=== PATIENT | male | born 1930 | race Caucasian/White ===

== ENCOUNTER 2016-12-23 19:27 | Inpatient (IN) | payer MEDICARE ==
[~2016-12-23] VITALS: Ht 177.8 cm; Wt 69.7 kg
[2016-12-23] VITALS (10 sets, daily range): BP systolic 76–113; BP diastolic 45–69; PULSE 75–82; RESP 12–18; O2SAT 94–100
[~2016-12-23 19:27] MED LIST: ACET-171 PO; ATRO5DRO SL; BISA10EN RC; CARV25TA2 PO; DOCU-41 PO; FUR20 PO; GUAI-656 PO; HALO2ORA PO; HYDR2TAB28 PO; LAC10 PO; LISI-567 PO; LORA0.5T PO; MAGN400T23 PO; NITR0.4T SL; OMEP20CA11 PO; POLY17PO2 PO; TERA2CAP4 PO; WARF3TAB PO; [UNRECOGNIZED DRUG - CODE] BOTH_EYES; [UNRECOGNIZED DRUG - CODE] PO
--- NOTE | 2016-12-23 20:04 | ED.REPORT ---
HPI-General Illness Date of Service Dec 23, 2016 ED Provider: Josh Warner MD Patient is an 86 year old male with a hx of CHF, CAD, HTN, mitral valve replacement, and previously low H&H with transfusions on Coumadin who presents to the ED via EMS from [facility] for a low H&H value and fatigue. Fatigue has been getting progressively worse over the past several weeks, moderate in severity. He has noticed some darker stools over approximately the same time period. No other notable allev/exac factors. He denies hematochezia, chest pain, abdominal pain, recent falls, lightheadedness, or any other symptoms at this time. Nursing Notes Stated Complaint: ANEMIA Chief Complaint: General Complaint Nursing Notes Reviewed: Yes Allergies: Coded Allergies: Bumble Bee (Verified Allergy, Severe, Anaphylaxis, 12/23/16) hydrocodone (Unverified Adverse Reaction, Severe, Hallucinations, 12/23/16) Scheduled ([Fentanyl patch]) 25 MCG TOPICAL Every 72 hours Carvedilol (Carvedilol) 25 Mg Tablet 25 MG PO BID Fluocinolone 0.01% Cream (Fluocinolone 0.01% Cream) 60 Applic/15 Gm Cream 1 APPLIC TOPICAL DAILY Lisinopril (Lisinopril) 5 Mg Tablet 5 MG PO DAILY Omeprazole (Omeprazole) 20 Mg Capsule.dr 20 MG PO DAILY Potassium Chloride ER (Potassium Chloride ER) 20 Meq Tablet.er 20 MEQ PO DAILYWM TAKE WITH FOOD Sennosides (Senna) 8.6 Mg Tablet 17.2 MG PO DAILYWD Terazosin (Terazosin) 2 Mg Capsule 4 MG PO HS Torsemide (Torsemide) 20 Mg Tablet 60 MG PO DAILY Warfarin Sodium (Warfarin Sodium) 2 Mg Tablet 2 MG PO Q2DAY Warfarin Sodium (Warfarin Sodium) 3 Mg Tablet 3 MG PO Q2DAY Scheduled PRN Acetaminophen (Acetaminophen) 500 Mg Tablet 1,000 MG PO Q6H PRN PRN For Pain Bisacodyl (Bisacodyl Rectal) 10 Mg/30 Ml Enema 10 MG RC PRN PRN PRN For Constipation Guaifenesin (Tussin Chest Congestion) 100 Mg/5 Ml Liquid 100 MG PO Q4H PRN PRN For Cough Hypromellose (Nature's Tears) 15 Ml Drops 15 ML BOTH_EYES Q 4 hrs PRN PRN dry eye Melatonin (Melatonin) 1 Mg Tablet 2 MG PO HS PRN PRN Insomnia Nitroglycerin SL (Nitrostat) 0.4 Mg Tab.subl 0.4 MG SL Q5MIN PRN PRN chest pain General Time Seen by MD: 20:03 Transferred From: shelter Chief Complaint Other (Low H&H ) Hx Obtained From: Patient, Other family... Arrived By: Ambulance Sudden in Onset?: Yes Onset Occurred: More than a week ago... (3 weeks) Symptom Duration: Since onset Severity: Current: No pain currently Severity: Maximum: No pain Associated with: Reports: Shortness of breath Relieved by: Remaining still Context Related History: Reports Coronary artery disease Similar Sx Previous: Yes Past Medical History Past Medical History 1. Coronary artery disease, valvular heart disease with a mechanical mitral valve, on chronic Coumadin. 2. Dyslipidemia. 3. Hypertension. 4. Chronic systolic CHF with an EF 30% to 35% on echo January of 2013. No significant recent change per echo report. Please see Dr. Martines's dictation for details. 5. DJD. 6. Chronic stasis changes in lower extremities with chronic swelling. 7. BPH. 8. 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 Marie and observed. 9. Gastroesophageal reflux disease. Past Surgical History He has had a mechanical mitral valve and coronary bypass grafting in 2003, pacemaker in 2003, upgrade to AICD in 2007. Cataract surgery in 2009. Reports: Appendectomy Reports: Pacemaker insertion Family History Mother at 86 of CVA. Father in his late 50s in World War II as part of the [employer]. Smoking History Former Smoker Social History He lives at [facility] with his . He is a former smoker, quitting in the 1970s after less than 30 pack history. Alcohol Use: Denies alcohol use Drug Use: Denies drug use Other Social History: Good social support, , Local resident Occupation Retired Ambulatory Status Independent Review of Systems +low H&H -recent fall Full Review of Systems Constitutional: Reports: Fatigue Respiratory: Reports: Shortness of breath Cardiovascular: Denies: Chest pain GI: Reports: Melena, Denies: Abdominal pain, Hematochezia Neurologic: Denies: Lightheaded Complete sys rev & neg: except as marked. Physical Exam Nursing note and vitals reviewed. Constitutional: Well-developed, elderly gentleman. Not diaphoretic. Head: Normocephalic and atraumatic. Mouth/Throat: Oropharynx is clear and moist. No oropharyngeal exudate. Eyes: EOM are normal. Pupils are equal, round, and reactive to light. Neck: Supple, no tracheal deviation. Cardiovascular: Normal rate, paced rhythm. Chronic julien stasis changes in bilateral lower extremities. Pulmonary/Chest: Effort normal and breath sounds normal. No respiratory distress. Abdominal: Soft. No distension. There is no rebound or guarding. Bowel sounds present. Mild epigastric tenderness. Musculoskeletal: Range of motion grossly intact, moving all extremities. 2+ pitting edema to bilateral lower extremities. : No gross blood. Guaiac positive Neurological: AOx3. Grossly nonfocal exam. Skin: Warm and dry, no rashes or pallor appreciated. Psychiatric: Appropriate mood and affect. Behavior appears normal. Vital Signs Vital Signs Date Time Temp Pulse Resp B/P Pulse Ox O2 Delivery O2 Flow Rate FiO2 12/23/16 21:09 76 14 101/50 96 Room Air 12/23/16 20:39 76 13 91/49 96 Room Air 12/23/16 20:07 98/45 12/23/16 20:00 76 12 80/58 96 Room Air 12/23/16 19:45 75 17 76/61 94 Room Air 12/23/16 19:35 36.7 81 13 98/45 95 Room Air Interpretation & Diagnostics Lab Results Interpretation Result Diagram: 12/24/16 0751 12/24/16 0751 Test 12/23/16 00:00 12/23/16 19:50 Urine Color Yellow (YELLOW) Urine Appearance Cloudy (CLEAR,HAZY) Urine pH 5.5 (5.0-8.0) Urine Specific [place] 1.010 (1.003-1.035) Urine Protein Tracemg/dL (NEG,TRACE) Urine Glucose (UA) Negativemg/dL (NEGATIVE) Urine Ketones Negativemg/dL (NEGATIVE) Urine Occult Blood Negative (NEGATIVE) Urine Nitrite Negative (NEGATIVE) Urine Bilirubin Negative (NEGATIVE) Urine Urobilinogen Normalmg/dL (NORMAL) Urine Leukocyte Esterase Large (NEGATIVE) Urine RBC 0-2/hpf (0-2) Urine WBC >50/hpf (0-5) Urine Epithelial Cells Few/hpf (NONE-MOD) Urine Crystals None seen (NONE SEEN) Urine Bacteria Many/hpf (NONE-FEW) Urine Hyaline Casts 11/22/lpf (NONE) Urine Granular Casts None seen (NONE SEEN) Urine Waxy Casts None seen (NONE SEEN) Urine Red Blood Cell Casts None seen (NONE SEEN) Urine White Blood Cell Casts None seen (NONE SEEN) Urine Mucus None seen (None Seen) Urine Trichomonas None seen (NONE SEEN) Urine Yeast None (NONE SEEN) Urinalysis Comment None Urine Culture Reflexed Indicated White Blood Count 3.5th/mm3 (3.8-10.1) Red Blood Count 1.85mil/mm3 (4.40-5.80) Mean Corpuscular Volume 85.9fL (81-100) Mean Corpuscular Hemoglobin 24.3pg (27.0-35.0) Mean Corpuscular Hemoglobin Concent 28.3% (32.0-37.0) Red Cell Distribution Width 14.4% (12.3-15.4) Platelet Count 163bil/L (150-400) Neutrophils (%) (Auto) 67.3% (40-74) Lymphocytes (%) (Auto) 18.9% (14-46) Monocytes (%) (Auto) 9.6% (4-12) Eosinophils (%) (Auto) 3.4% (0-5) Basophils (%) (Auto) 0.8% (0-3) Magnesium Level 2.6mg/dL (1.6-2.6) Total Bilirubin 0.3mg/dL (0.0-1.2) Aspartate Amino Transf (AST/SGOT) 14U/L (0-50) Alanine Aminotransferase (ALT/SGPT) 7U/L (0-44) Alkaline Phosphatase 67U/L (25-160) Total Protein 6.3g/dL (6.4-8.4) Albumin 3.6g/dL (3.4-5.0) ECG Interpretation ECG Interpretation: Ventricular-paced rhythm rate 75 Time: 19:35 Interpreted by: ED physician X-Ray Chest Interpretation Chest Xray Interpretation: IMPRESSION: 1. Focal opacity in the right lung base consistent with atelectasis versus pneumonia. 2. Cephalization of pulmonary vasculature suspicious for CHF Dictated by: Stephanie Hall MD, PhD on 12/23/2016 at 20:56 Approved by: Stephanie Hall MD, PhD on 12/23/2016 at 20:57 View: Portable, 1 view Interpretation / Wet Read by: Interpret - Radiologist Re-Eval/Medical Decision Med Decision/Clinical Course 86M w/ complex PMHx including CAD, mitral valve replacement on coumadin p/w progressive fatigue over the past several weeks. Low H/H noted earlier today, Hgb less than 5 here. Elevated INR on coumadin. Hemoccult positive. Given critically low Hgb on coumadin with suspected GI bleed, patient transfused FFP to reverse INR and pRBCs. Currently with tenuous but stable vital signs here in the department. Discussed with GI chip bin conveyor tender for emergent scope. Will admit for further eval and management. Discussed at length with family and patient. Time of Eval: 21:01 Re-Evaluation/Progress Note: Discussed plan for admission with transfusion. Discussed tranfusion risks. Patient understands and agrees with plan. All questions addressed at this time. Consultation #1: Referral / Consult Name: Dany Mccallum MD Call Returned at: 21:36 Pin Worker: Will see patient, Agrees with eval, Agrees with plan Note: Discussed pt's case with GI. Will see pt tomorrow. Consultation #2: Referral / Consult Name: Tad Finnegan MD Consulted With: Hospitalist Call Returned at: 21:40 Pin Worker: Will see patient, Agrees with eval, Agrees with plan, Accepts admit Note: Discussed pt's case. Accepts admit. Counseled Regarding: Diagnosis, Lab results, Need for admission Discharge & Departure Primary Impression: GI bleed GI bleed type/associated pathology: unspecified gastrointestinal hemorrhage type Qualified Code: K92.2 - Gastrointestinal hemorrhage, unspecified Additional Impression: Anemia Anemia type: unspecified type Qualified Code: D64.9 - Anemia, unspecified Disposition: ADMITTED TO HOSPITAL Discharge Condition All VS Reviewed: Yes Condition: Stable Referrals: Jamaica Flores MD (PCP) Crit Care Except Billable Proc Time Spent: 75-104 minutes Services Performed: Patient management by me, Time spent at bedside, Reviewing test results, Discussing patient care, Documentation in record Critical Care Notes: Please see MDM Scribe Attestation Portions of this note were transcribed by Bassam Leos. I, Dr. Warner personally performed the history, physical exam and medical decision-making; I reviewed and confirmed the accuracy of the information in the transcribed note. Signed by: Bassam Leos 12/23/16, [id number] copies to: Jamaica Flores MD, William B MD Dec 23, 2016 20:04 BASSAM LEOS Dec 23, 2016 20:54
[2016-12-23] MEDS ORDERED: 0.9% Sodium Chloride 1,000 ML IV ONE (20:05)
[2016-12-23 20:15] LABS: BASOPHILS % (AUTO) 0.8 % (0-3); EOSINOPHILS % (AUTO) 3.4 % (0-5); MONOCYTES % (AUTO) 9.6 % (4-12); Mean Corpuscular Hemoglobin 24.3 pg (27.0-35.0); Mean Corpuscular Volume 85.9 fL (81-100); NEUTROPHILS % (AUTO) 67.3 % (40-74); Platelet Count 163 bil/L (150-400)
[2016-12-23 20:35] LABS: INR 4.92 ratio
[2016-12-23 20:43] LABS: Magnesium 2.6 mg/dL (1.6-2.6)
[2016-12-23 20:51] LABS: TROPONIN T 0.063 ug/L (0.0-0.011)
--- NOTE | 2016-12-23 20:59 | DRSVH ---
PROCEDURE: X-RAY CHEST ONE VIEW, PORTABLE ([id number]) INDICATIONS: anemia, fatigue TECHNIQUE: One view of the chest was acquired. COMPARISON: [facility], CR, XR CHEST 1VW (PORTABLE), 07/14/2015, 11:28. FINDINGS: Surgical changes and devices: AICD is stable. Lungs and pleura: No pleural effusions or pneumothorax. Focal opacity noted in the right lung base c ompatible with atelectasis versus pneumonia. There is cephalization of pulmonary vasculature suspici ous for CHF. Mediastinum: Mediastinal contours appear normal. Heart size is enlarged. Bones and chest wall: No suspicious bony lesions. Overlying soft tissues appear unremarkable. IMPRESSION: 1. Focal opacity in the right lung base consistent with atelectasis versus pneumonia. 2. Cephalization of pulmonary vasculature suspicious for CHF Dictated by: Stephanie Hall MD, PhD on 12/23/2016 at 20:56 Approved by: Stephanie Hall MD, PhD on 12/23/2016 at 20:57
[2016-12-23] MEDS ORDERED: Phytonadione (Adult) 10 mg/50 mL NS IV ONE ×2 (21:15)
[2016-12-23] MEDS ORDERED: Ondansetron 2 mg/mL 2 mL Inj IVPUSH PRN (21:55)
[2016-12-23] MEDS ORDERED: Polyethylene Glycol (PEG) 17 Gm Powder PO PRN (21:55)
[2016-12-23] MEDS ORDERED: Alum-Mag Hydrox-Simeth 30 mL Suspension PO PRN (21:55)
[2016-12-23] MEDS ORDERED: Pantoprazole Inj 80 MG in 0.9% Sodium Chloride 80 ML IV ONE (22:00)
[2016-12-23] MEDS: Pantoprazole Inj 80 MG in 0.9% Sodium Chloride 80 ML IV SCH (23:35)
[2016-12-24] VITALS (28 sets, daily range): BP systolic 94–131; BP diastolic 47–74; PULSE 72–83; RESP 14–20; O2SAT 90–99
[2016-12-24 00:14] LABS: APPEARANCE,URINE CLOUDY (CLEAR,HAZY); COLOR,URINE YELLOW (YELLOW); PH,URINE 5.5 (5.0-8.0)
[2016-12-24 00:15] LABS: OCCULT BLOOD,URINE NEGATIVE (NEGATIVE); UROBILINOGEN,URINE NORMAL (NORMAL)
--- NOTE | 2016-12-24 00:31 | PCM.HPMED ---
Subjective Date of Service Dec 24, 2016 Primary Provider: Admitting Physician: Tad Finnegan MD Primary Care Physician: Jamaica Flores MD Attending Physician: Tad Finnegan MD Admit Status: From the Emergency Department Chief Complaint: Fatigue with mild shortness of breath History of Present Illness: Patient is an 86-year-old male with past medical history remarkable for coronary artery disease post CABG as well as mitral valve replacement with mechanical valve chronically on Coumadin who presents with several weeks of worsening fatigue. The patient states that he has never had any pain anywhere during the course of this weeks long process. The patient states that it has been gradual over the last several weeks with accompanying mild shortness of breath which is noted with exertion and not when lying flat. The patient is wheelchair bound at baseline. The patient is also noted approximately 1 month of dark colored stools but denies any abdominal pain or gross distention of his abdomen.. The patient denies fever or chills sore throat and runny nose or cough chest pain, nausea vomiting diarrhea, unusual bruising or bleeding, or trouble with urination. Review of Systems: A comprehensive review of systems was obtained and all are negative except for what is included in the history of present illness. Allergies Coded Allergies: Bumble Bee (Verified Allergy, Severe, Anaphylaxis, 12/23/16) hydrocodone (Unverified Adverse Reaction, Severe, Hallucinations, 12/23/16) Home Medications Carvedilol 25 MG PO BID Docusate Sodium 200 MG PO QAM Furosemide 60 MG PO QAM Lisinopril 20 MG PO DAILY Magnesium Oxide 400 MG PO BID Omeprazole 20 MG PO DAILY Terazosin 4 MG PO HS Warfarin Sodium 3 MG PO DAILY@17 Acetaminophen 1,000 MG PO Q6H PRN For Pain Atropine Sulfate 2 DROP SL Q2H PRN secretions Bisacodyl 10 MG RC PRN For Constipation Guaifenesin 100 MG PO Q4H PRN For Cough Haloperidol Lactate 0.5-2 MG PO Q2H PRN For Agitation Hydromorphone 2-4 MG PO HS PRN For Pain Hydromorphone Liquid 1-4 MG PO Q1H PRN pain/dyspnea Hypromellose 15 ML BOTH_EYES Q 4 hrs PRN dry eye Lactulose 10-80 GM PO DAILY PRN For Constipation Lorazepam 0.5-2 MG PO Q2H PRN anxiety/dyspnea Nitroglycerin SL 0.4 MG SL Q5MIN PRN chest pain Polyethylene Glycol 3350 17 GM PO DAILY PRN For Constipation PMH 1. Coronary artery disease, 2. mitral valvular heart disease with a mechanical mitral valve, on chronic Coumadin. 3. Hypertension. 4. Chronic systolic CHF with an EF 30% to 35% on echo January of 2013 5. Degenerative joint disease 6. Chronic stasis changes in lower extremities with chronic swelling. 7. Benign prostatic hypertrophy 8. 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 Marie and observed. 9. Gastroesophageal reflux disease. 10. Dyslipidemia. Surgical History mechanical mitral valve replacement coronary bypass grafting in 2003, pacemaker in 2003, upgrade to AICD in 2007. Cataract surgery in 2009. Appendectomy Family History Mother at 86 of CVA. Father in his late 50s in World War [place] as part of the [place] [employer] on the [place] Brother in his 60s Social History Occupation: retired Hx Alcohol Use: No (minimal. none since open heart surgery in 2003.) Hx Substance Use: No Hx Tobacco Use: No Smoking Status: Former Smoker Living Ar[facility]ement[facility] Exam Vital Signs Vital Sign - Last Date Time Temp Pulse Resp B/P Pulse Ox O2 Delivery O2 Flow Rate FiO2 12/24/16 00:10 36.6 76 16 101/62 12/23/16 23:14 Supplement Oxygen 12/23/16 22:30 100 4.00 Intake and Output 12/23/16 12/23/16 12/24/16 Cumulative From/Thru 15:00 23:00 07:00 12/23/16 19:35 - 12/24/16 00:00 Intake Total 1000 ml 260 ml 1260 ml Balance 1000 ml 260 ml 1260 ml Intake IV Total 1000 ml 90 ml 1090 ml FFP 170 ml 170 ml Exam General: Elderly mustachioed gentleman appearing approximately stated age, Alert, Oriented X3, Cooperative, No acute Distress Eyes: PERRLA, extraocular motion intact, Scleral Anicteric, pale moist conjunctiva HENT: Normocephalic atraumatic, dry mucous membranes without central cyanosis or cobblestoning mucosa, Neck: Supple, no Thyromegaly, trachea central. No JVD noted Cardiovascular: Regular rate and rhythm, diastolic murmur noted at the apex with mechanical click, no rubs or gallops noted Chest & Lungs: Clear to auscultation bilaterally without wheezing rales or rhonchi Abdomen: Soft, Non-tender, Non-distended, Normoactive bowel tones. Extremities: Moderate 2-3+ pitting edema in lower extremities bilaterally up to the knee, pulses intact bilaterally at radial and dorsalis pedis no clubbing or cyanosis noted Musculoskeletal: Unremarkable : No Nguyen in place Skin: Chronic venous stasis changes including dark discoloration circumferentially around the distal lower extremities Neurological: Grossly Neurologically Intact, has generalized weakness, Normal Speech, Sensation Intact Psych: Normal mood and affect Lab and Diagnostics Result Diagram: 12/23/16194912/23/161949 X-Rays, CTs and MRIs X-RAY CHEST ONE VIEW, PORTABLE ([id number]) IMPRESSION: 1. Focal opacity in the right lung base consistent with atelectasis versus pneumonia. 2. Cephalization of pulmonary vasculature suspicious for CHF Dictated by: Stephanie Hall MD, PhD on 12/23/2016 at 20:56 Approved by: Stephanie Hall MD, PhD on 12/23/2016 at 20:57 Cardiac Echo Impressions Previously performed Echocardiogram Report in April 2015 Interpretation Summary The left ventricle is normal in size. The ejection fraction is estimated to be 15-20%. Compared to the prior exam, left ventricular function is significantly decreased. The right ventricle is moderate to severely dilated. Right ventricular systolic function is moderate to severely reduced. Both atria are severely dilated. Both atria have remained unchanged in size since the prior echo exam. There are two AICD wires present in the right ventricle. In Apical view, a ill visualized, small mobile structure seen, appears to be attached to the AICD lead at the tricuspid valve level. Differential diagnosis includes: Thrombus versus small vegetation or residual chordae. Consider RAMONA. There is a mechanical mitral valve. The prosthetic mitral valve is well-seated. Cannot assess the presence or severity of regurgitation due to shielding from the prosthesis. The mitral E velocity is about 1.84 meter/sec. In 01/13/2013 it was 1.88 meter/sec. An annuloplasty ring is noted in the tricuspid position. There is mild to moderate tricuspid regurgitation.Compared to the prior echo exam, there has been an increase in TR severity. The right ventricular systolic pressure is estimated at 65 mmHg assuming a right atrial pressure of 15 mm Hg. Compared to the prior echo exam, there has been an increase in the severity of pulmonary hypertension. There are moderately large-sized bilateral pleural effusions noted. Reading Physician:ELADIO Assessment & Plan Patient is an 86-year-old male with past medical history remarkable for coronary artery disease post CABG as well as mitral valve replacement with mechanical valve chronically on Coumadin who presents with several weeks of worsening fatigue. # Acute blood loss anemia - Patient presents with hemoglobin 4.5 at admission - Patient is on chronic warfarin therapy for a mechanical mitral valve replacement and came in with an INR of 4.92 - Patient typed and crossed in the emergency department and started on fresh frozen plasma prior to initiation of typed and crossed 2 units of PRBC on PCC - Repeat H&H to be ordered after completion of 2 units of PRBC and at least one unit of FFP - Order to hold at least 1 more unit of blood # Acute upper GI bleed - Patient denies hematemesis or hematochezia but has noted at least one month of dark stools - Patient denies abdominal pain or increased abdominal girth at this time making large intra-abdominal hemorrhage less likely - Gastroenterology reportedly consulted from the emergency department with a upper endoscopy scope possible - Patient made nothing by mouth for possible endoscopy procedure by GI - Medicine appreciates GIs recommendations - Blood product replacement described above - Pantoprazole bolus and drip ordered # Supratherapeutic INR - Patient is on chronic warfarin therapy for a mechanical mitral valve replacement and came in with an INR of 4.92 - Patient given IV vitamin K started in the emergency department - Repeat INR ordered and pending # Elevated troponins - Patient has known coronary artery disease, combined with the severe blood loss anemia expected likely due to demand ischemia - Troponins at presentation of 0.063 this will be trended every 6 hours with the last draw ordered and pending # Chronic systolic congestive heart failure - Last echo reportedly shows ejection fraction of 15-20% in April 2015 - Patient was severely anemic and will require 2 units of PRBC at minimum, and has 4 units of FFP ordered by ED - Patient will be monitored for volume overload however this will be difficult to assess given patient's depleted intravascular volume and requirement for blood products - Holding carvedilol and lisinopril and torsemide given low normotensive state with severe volume depletion - Consider monitoring with serial chest x-rays and close physical exam # Acute kidney injury - Creatinine of 2.4 at admission with baseline creatinine typically around 1 according to electronic medical records - Likely secondary to severe volume depletion from acute blood loss anemia due to upper GI bleed - Volume repletion described above mostly conservative with fluid management given CHF - monitor with serial BMPs # mitral valvular heart disease with a mechanical mitral valve on chronic Coumadin - Patient started on IV vitamin K given elevated INR with likely upper GI bleed and acute blood loss anemia - Monitor INR and to avoid significant prolonged decreased INR given risk of thromboembolic phenomenon to systemic circulation # Chronic Coronary artery disease - We will monitor elevated troponin serially every 6 - Current med rec fails to reveal patient's current statin therapy - Recommend a lipid panel after blood product transfusion - Tight blood pressure control # Chronic Hypertension. 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 Marie - Platelet count of 163 admission - Anemia is likely due to acute blood loss - Monitor # Gastroesophageal reflux disease. - Pantoprazole bolus and drip ordered for upper GI bleed DVT prophylaxis: Patient is chronically anticoagulated on warfarin and is currently contraindicated further anticoagulation given upper GI bleed GI prophylaxis: Pantoprazole drip CODE STATUS: Full code The patient is admitted to inpatient status with expected length of stay greater than to midnights given presenting symptoms, likely diagnosis, possible complications and required treatment. Pain Evaluation: Adequate Pain Control GI Prophylaxis: Proton Pump Inhibitor VTE Prophylaxis Indicated: Contraindicated VTE Prophylaxis: Theraputic Anticoag with Warfarin Resuscitation Status: CPR: Attempt Resuscitation Attending Statement The patient was seen and examined together with Dr. Godfrey on 12/23 and I agree with the history, exam and plan as outlined in the note above. Jesse Barrera DO Dec 24, 2016 00:31 Tad Finnegan MD Dec 24, 2016 05:39
[2016-12-24] MEDS ORDERED: 0.9% Sodium Chloride 250 ML ONE ×2 (00:36→03:31)
[2016-12-24] MEDS ORDERED: SENN-133 PO (02:31)
[2016-12-24] MEDS ORDERED: FLUO15CR33 TOPICAL (02:31)
[2016-12-24] MEDS ORDERED: LISI-571 PO (02:31)
[2016-12-24] MEDS ORDERED: WARF3TAB7 PO (02:31)
[2016-12-24] MEDS ORDERED: POTA-62 PO (02:31)
[2016-12-24] MEDS ORDERED: WARF2TAB7 PO (02:31)
[2016-12-24] MEDS ORDERED: MELA1TAB9 PO (02:31)
[2016-12-24] MEDS ORDERED: TORS20TA3 PO (02:31)
[2016-12-24] MEDS ORDERED: FENTANYL TOPICAL (02:31)
--- NOTE | 2016-12-24 02:32 | NUR ---
Admit Documentation Values in admission documentation recalled from prior visits r/t pt forgetfulness and poor historian. Pt reports his medical records are on file and available from [facility], including advance directive. Contacted facility tc, only able to obtain MAR. Will request additional paperwork in AM. Addendum: 12/24/16 at 0235 by JUVENTINO STEWARD RN Amended: Links added.
--- NOTE | 2016-12-24 06:46 | NUR ---
Admit Pt arrived to PCC room 2028 via bed from ED with all belongings at approx. 2200; report received from Madhuri Cisneros. Pt denies pain or discomfort on arrival, family at bedside. Admit documentation completed with past records from prior visits, updated medical history documentation still needed from [facility]; med rec completed via MAR from [facility]. VSS upon arrival, tele V-paced 70s. STAT 2 units of FFP, protonix bolus and drip, and vitamin K infusion initiated upon arrival to floor; 2 units PRBCs given throughout shift without adverse reaction. Pt slightly wheezy after initiation of second PRBC unit, though wheezes resolved spontaneously upon reassessment. UA sent to lab.
--- NOTE | 2016-12-24 07:54 | PCM.PNMED ---
Subjective Date of Service Dec 24, 2016 Subjective Patient feels weak. He is not short of breath and has been progressively short of breath for 2 weeks. He denies any chest pain. He has had chronic edema which is about stable. He denies any abdominal pain, nausea or hematemesis. 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 He is said to have a mechanical mitral valve and is on Coumadin which was partially reversed. Exam Vital Signs Vital Sign - Last Date Time Temp Pulse Resp B/P Pulse Ox O2 Delivery O2 Flow Rate FiO2 12/24/16 07:16 36.7 76 18 105/64 12/24/16 04:30 93 Nasal Cannula 3.50 Intake and Output 12/23/16 12/23/16 12/24/16 Cumulative From/Thru 15:00 23:00 07:00 12/23/16 19:35 - 12/24/16 06:50 Intake Total 1000 ml 1100 ml 2100 ml Output Total 350 ml 350 ml Balance 1000 ml 750 ml 1750 ml Intake Oral 0 ml 0 ml IV Total 1000 ml 430 ml 1430 ml Packed Cells 300 ml 300 ml FFP 370 ml 370 ml Output Urine Total 350 ml 350 ml Exam Alert and oriented -3, no distress. Fluent speech Anicteric sclera. Lungs are clear with normal rate and effort, decreased breath sounds in the bases and slight tachypnea. Heart is regular without murmur gallop or rub Abdomen soft nontender, flat Extremities normal for chronic venous stasis changes as well as 2-3+ edema bilaterally. Skin is free of rash or lesions. Venous stasis changes. IVs and Medications Medications Reviewed: Medications were reviewed in detail Lab and Diagnostics Result Diagram: 12/23/16194912/23/161949 X-Rays, CTs and MRIs X-RAY CHEST ONE VIEW, PORTABLE ([id number]) IMPRESSION: 1. Focal opacity in the right lung base consistent with atelectasis versus pneumonia. 2. Cephalization of pulmonary vasculature suspicious for CHF Dictated by: Stephanie Hall MD, PhD on 12/23/2016 at 20:56 Approved by: Stephanie Hall MD, PhD on 12/23/2016 at 20:57 Cardiac Echo Impressions Previously performed Echocardiogram Report in April 2015 Interpretation Summary The left ventricle is normal in size. The ejection fraction is estimated to be 15-20%. Compared to the prior exam, left ventricular function is significantly decreased. The right ventricle is moderate to severely dilated. Right ventricular systolic function is moderate to severely reduced. Both atria are severely dilated. Both atria have remained unchanged in size since the prior echo exam. There are two AICD wires present in the right ventricle. In Apical view, a ill visualized, small mobile structure seen, appears to be attached to the AICD lead at the tricuspid valve level. Differential diagnosis includes: Thrombus versus small vegetation or residual chordae. Consider RAMONA. There is a mechanical mitral valve. The prosthetic mitral valve is well-seated. Cannot assess the presence or severity of regurgitation due to shielding from the prosthesis. The mitral E velocity is about 1.84 meter/sec. In 01/13/2013 it was 1.88 meter/sec. An annuloplasty ring is noted in the tricuspid position. There is mild to moderate tricuspid regurgitation.Compared to the prior echo exam, there has been an increase in TR severity. The right ventricular systolic pressure is estimated at 65 mmHg assuming a right atrial pressure of 15 mm Hg. Compared to the prior echo exam, there has been an increase in the severity of pulmonary hypertension. There are moderately large-sized bilateral pleural effusions noted. Reading Physician:PM Assessment & Plan Patient is an 86-year-old male with past medical history remarkable for coronary artery disease post CABG as well as mitral valve replacement with mechanical valve chronically on Coumadin who presents with several weeks of worsening fatigue. # Acute blood loss anemia, POA and active - Patient presents with hemoglobin 4.5 at admission - Patient is on chronic warfarin therapy for a mechanical mitral valve replacement and came in with an INR of 4.92 - Patient typed and crossed in the emergency department and started on fresh frozen plasma prior to initiation of typed and crossed 2 units of PRBC on PCC - Repeat H&H to be ordered after completion of 2 units of PRBC and at least one unit of FFP - Order to hold at least 1 more unit of blood Will repeat H&H at this point. We will anticipate threshold hematocrit of 27 given his history of CAD. He will require concomitant diuresis with his active systolic heart failure. # Acute upper GI bleed, POA and active - Patient denies hematemesis or hematochezia but has noted at least one month of dark stools - Patient denies abdominal pain or increased abdominal girth at this time making large intra-abdominal hemorrhage less likely - Gastroenterology reportedly consulted from the emergency department with a upper endoscopy scope possible - Patient made nothing by mouth for possible endoscopy procedure by GI - Medicine appreciates GIs recommendations - Blood product replacement described above - Pantoprazole bolus and drip ordered Spoke with gastroenterology, anticipated endoscopy today and then prepped for colonoscopy tonight for tomorrow. # Supratherapeutic INR, POA and affect - Patient is on chronic warfarin therapy for a mechanical mitral valve replacement and came in with an INR of 4.92 - Patient given IV vitamin K started in the emergency department - Repeat INR ordered and pending # Elevated troponins - Patient has known coronary artery disease, combined with the severe blood loss anemia expected likely due to demand ischemia - Troponins at presentation of 0.063 this will be trended every 6 hours with the last draw ordered and pending # Acute on Chronic systolic congestive heart failure, POA and active - Last echo reportedly shows ejection fraction of 15-20% in April 2015 - Patient was severely anemic and will require 2 units of PRBC at minimum, and has 4 units of FFP ordered by ED - Patient will be monitored for volume overload however this will be difficult to assess given patient's depleted intravascular volume and requirement for blood products - Holding carvedilol and lisinopril and torsemide given low normotensive state with severe volume depletion - Consider monitoring with serial chest x-rays and close physical exam The patient will need diuresis today before and during transfusion. # Acute kidney injury, POA and active. 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 - We will monitor elevated troponin serially every 6 - Current med rec fails to reveal patient's current statin therapy - Recommend a lipid panel after blood product transfusion - Tight blood pressure control The patient will best be managed with optimization of hemoglobin and hematocrit. # Chronic Hypertension. POA and Active. 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 Marie - Platelet count of 163 admission - Anemia is likely due to acute blood loss - Monitor # Gastroesophageal reflux disease. - Pantoprazole bolus and drip ordered for upper GI bleed DVT prophylaxis: Patient is chronically anticoagulated on warfarin and is currently contraindicated further anticoagulation given upper GI bleed GI prophylaxis: Pantoprazole drip CODE STATUS: Full code The patient is admitted to inpatient status with expected length of stay greater than to midnights given presenting symptoms, likely diagnosis, possible complications and required treatment. Add: Non bleeding ulcer on EGD. Mechanical Mitral valve at risk for thrombosis. D/W GI. Will heparinize tonight and watch for recurrent bleeding. GI Prophylaxis: Proton Pump Inhibitor VTE Prophylaxis: Theraputic Anticoag with Warfarin Resuscitation Status: CPR: Attempt Resuscitation Jesus Gibbs MD Dec 24, 2016 07:54
[2016-12-24] MEDS ORDERED: Furosemide 10 mg/mL 4 mL Inj IVPUSH ONE ×2 (07:55→19:20)
[2016-12-24 08:28] LABS: INR 1.76 ratio
[2016-12-24 08:58] LABS: TROPONIN T 0.054 ug/L (0.0-0.011)
[2016-12-24] MEDS ORDERED: Propofol 10 mg/mL 20 mL Inj ONE (10:08)
[2016-12-24] MEDS: 0.9% Sodium Chloride 250 ML IV SCH ×2 (10:37→22:24)
--- NOTE | 2016-12-24 11:37 | DRSVH ---
PROCEDURE: X-RAY CHEST ONE VIEW, PORTABLE ([id number]) INDICATIONS: chf requiring fluid recussitaion TECHNIQUE: One view of the chest was acquired. COMPARISON: [facility], CR, XR CHEST 1VW (PORTABLE), 12/23/2016, 20:11. FINDINGS: Surgical changes and devices: Stable positioning of left chest AICD. Patient status post median ster notomy and valvular replacement. Lungs and pleura: Mild venous congestion and persist and opacification involving the right lung base. No pneumothorax. Mediastinum: Mediastinal contours appear normal. Heart size is normal. Bones and chest wall: No suspicious bony lesions. Overlying soft tissues appear unremarkable. IMPRESSION: Mild edema and/or pneumonia involving the right lung base similar to prior exam. Dictated by: Akil MARKS Interpreted: Keven Hernandez MD on 12/24/2016 at 9:11 Approved by: Keven Hernandez M.D. on 12/24/2016 at 11:34
--- NOTE | 2016-12-24 11:52 | NUR ---
Social work note - Initial Assessment Jya Alejo is a 86 yr old who was admitted for GI bleed. EMR reviewed: Pt has [facility] plan of [place]. Pt's PCP is Dr Flores. Pt has LTC insurance, no VA benefits. Readmit score is 4 - high. See attached CM initial assessment. [employer] met with pt - introduced D/C planning and explained SW role. Pt is alert and oriented. He lives at [facility] with his . He is wheelchair bound at baseline. uses a walker at times. He has assistance for dressing, bathing, medications and showers. 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 Pt admits that he is nervous that he is sick. He plans to return to [facility] at d/c. He has good support from his family - Daughter Starla Monahan is DPOA. Pt states that family will help transport home. [employer] spoke with Michelle at [facility] - They would love for him to return. He will need to be able to transfer to wheel chair, but they provide consistent stand by assistance. [employer] will continue to follow. Assessment: Pt who will be able to return to [facility] if pt is able to transfer from bed to wheelchair. Pt has had [facility] past - graduated several months ago. Plan: Home to [facility] with family providing transportation. ALEXANDER Goel Addendum: 12/24/16 at 1158 by ANNA PARKINSON SS Amended: Links added.
--- NOTE | 2016-12-24 13:22 | CONS ---
[address] [address] CONSULTATION REPORT PATIENT: LEIDY THAKKAR : 1930 MR#: [id number] ADMIT: 12/23/2016 JOB ID: [id number] DATE OF SERVICE: 12/24/2016 REASON FOR CONSULTATION: I was asked to see the patient at [facility] for anemia. HISTORY OF PRESENT ILLNESS: This is an 86-year-old gentleman with significant past medical history of CAD, mitral valve disease with mechanical mitral valve on chronic Coumadin. Also has hypertension with CHF with EF of only 30% to 35% with degenerative joint disease, reflux, and chronic anemia with thrombocytopenia due to monoclonal gammopathy. He has been followed by oncology. He came to the emergency department because he was feeling weak and fatigued for several weeks. He does not have any issues with change in bowel patterns, blood in the stools, or black stools, but his bowel pattern has not changed. He is going to the bathroom once or twice a day. Because of progressive gradual worsening reflux, which was later accompanied by shortness of breath with exertion, he came to the emergency department. In the emergency department, he was noted to be severely anemic. His INR was actually elevated to 4.9 and hemoglobin was 4.5. Overnight he was given a reversal agent to hopefully getting into a more therapeutic range. When I saw him this morning at 7:00, he did not appear to have any blood transfusion, but he told me his dizziness has resolved. He does not have any nausea or vomiting. He has no abdominal pain, chest pain, or shortness of breath; however, he was in the bed and he has not been exerting himself. He denied seeing any black stools and he says he always has brown formed stools. PAST MEDICAL HISTORY: As above. PAST SURGICAL HISTORY: Mechanical valve replacement, CABG, pacemaker, cataract surgery, appendectomy. FAMILY HISTORY: CVA. SOCIAL HISTORY: Retired. No alcohol, tobacco, or drug use. MEDICATIONS: Here include pantoprazole, MiraLAX, senna, Zofran, and Maalox. PHYSICAL EXAMINATION: The patient is alert, oriented, does appear comfortable. Temp 36.6, pulse 75, respiration 20, blood pressure 121/66. Head and neck: No icterus, no lymphadenopathy. Lungs: Clear. Cardiovascular: Regular rate and rhythm. Normal S1, S2. Abdomen: Soft, nontender, nondistended, with normoactive bowel sounds. Extremities: No pitting edema of the ankles. Skin: Shows no obvious jaundice. LABORATORY DATA: His hemoglobin was 4.5 on admission. As of 8:00 this morning 6.5 hemoglobin. Platelets are 163,000. INR went from 4.9 to 1.76. Chemistry: BUN 67, creatinine 2.19. Mild elevation of troponin of 0.054. IMPRESSION and PLAN: This is a gentleman with severe anemia, probably with some demand supply mismatch which may have been elevating his troponin, but on the other hand this could be due to his kidney issues as well. There is no evidence of active bleeding. Agree with PPI. I would like to do an upper endoscopy but I would like to get him transfused with a hemoglobin of 9 before proceeding due to his significant cardiac history. Continue resuscitation and if there is no clear source will proceed with a colonoscopy. Would like to do this with anesthesia. DELROY
[2016-12-24] MEDS: Pantoprazole Inj 80 MG in 0.9% Sodium Chloride 80 ML IV SCH (13:48)
[2016-12-24] MEDS ORDERED: Lactated Ringer's 1,000 ML IV SCH (15:36)
[2016-12-24] MEDS ORDERED: Ondansetron 2 mg/mL 2 mL Inj IVPUSH PRN (15:40)
[2016-12-24] MEDS ORDERED: MetoCLOpramide 5 mg/mL 2 mL Inj IVPUSH PRN (15:40)
--- NOTE | 2016-12-24 16:22 | PCM.HPANE ---
Patient Data Date of Service: Dec 24, 2016 Surgeon Admitting Provider:Tad Finnegan MD Attending Provider:Tad Finnegan MD Primary Care Physician:Jamaica Flores MD Other Provider: Reason for Visit Acute Anemia, Gi Bleed Ht/WT & BMI Height (Feet): 5 Height (Inches): 10.00 Weight (Kilograms): 73.100 Body Mass Index 23.07 Allergies Coded Allergies: Bumble Bee (Verified Allergy, Severe, Anaphylaxis, 12/23/16) hydrocodone (Unverified Adverse Reaction, Severe, Hallucinations, 12/23/16) Past Anesthesia History Anesthesia History: Denies:: Abnormal Airway, Anesthesia Reactions, Difficult Intubation, Fam Anesthesia Reaction, Fam Malignant Hypertherm, Malignant Hyperthermia Diabetes History Hx Diabetes?: No MRSA MRSA: No Medications Blood Thinner: Coumadin Home Meds Incl Beta Jorge: Yes Previous Beta Jorge Dose >24: Dose Not Given, Contraindicated Beta Jorge Contraindicated: Systolic BP <110 mmHg, Symptoms of CHF Present Reported Medications Melatonin 1 Mg Tablet2 Mg PO HS PRN Insomnia 12/24/16 Warfarin Sodium 3 Mg Tablet3 Mg PO Q2DAY 30 Days Ref 0 12/24/16 Warfarin Sodium 2 Mg Tablet2 Mg PO Q2DAY 30 Days Ref 0 12/24/16 Torsemide 20 Mg Cpmlry00 Mg PO DAILY 30 Days Ref 0 12/24/16 Sennosides (Senna)8.6 Mg Lclqbn90.2 Mg PO DAILYWD 12/24/16 Potassium Chloride ER 20 Meq Tablet.er20 Meq PO DAILYWM Ref 0 TAKE WITH FOOD 12/24/16 Lisinopril 5 Mg Tablet5 Mg PO DAILY #30 TABLET Ref 0 12/24/16 Fluocinolone 0.01% Cream 60 Applic/15 Gm Cream1 Applic TOPICAL DAILY psoriasis Ref 0 12/24/16 [Fentanyl patch] No Conflict Check25 Mcg TOPICAL Every 72 hours 12/24/16 Guaifenesin (Tussin Chest Congestion)100 Mg/5 Ml Viqycy449 Mg PO Q4H PRN For Cough 07/14/15 Acetaminophen 500 Mg Tablet1,000 Mg PO Q6H PRN For Pain 07/14/15 Bisacodyl (Bisacodyl Rectal)10 Mg/30 Ml Enema10 Mg RC PRN PRN For Constipation 07/14/15 Nitroglycerin SL (Nitrostat)0.4 Mg Tab.subl0.4 Mg SL Q5MIN PRN chest pain #1 BOTTLE 04/17/15 Hypromellose (Nature's Tears)15 Ml Drops15 Ml BOTH_EYES Q 4 hrs PRN dry eye 04/17/15 Terazosin 2 Mg Capsule4 Mg PO HS Ref 0 04/17/15 Omeprazole 20 Mg Capsule.dr20 Mg PO DAILY Ref 0 04/17/15 Carvedilol 25 Mg Jogrnl54 Mg PO BID 30 Days Ref 0 12/13/14 Discontinued Reported Medications Polyethylene Glycol 3350 17 Gm Powd.pack17 Gm PO DAILY PRN For Constipation 07/14/15 Lorazepam 0.5 Mg Tablet0.5-2 Mg PO Q2H PRN anxiety/dyspnea Ref 0 07/14/15 Lactulose 10 Gm/15 Ml Zeogcdso12-94 Gm PO DAILY PRN For Constipation 07/14/15 Hydromorphone Liquid (Dilaudid Liquid)1 Mg/Ml Oral.soln1-4 Mg PO Q1H PRN pain/ dyspnea 07/14/15 Haloperidol Lactate 2 Mg/1 Ml Oral.conc0.5-2 Mg PO Q2H PRN For Agitation 07/14/15 Atropine Sulfate (Isopto Atropine)5 Ml Drops2 Drop SL Q2H PRN secretions 07/14/15 Lisinopril 20 Mg Iupsha03 Mg PO DAILY #30 07/14/15 Docusate Sodium (Colace)100 Mg Emyzbyi617 Mg PO QAM For Constipation Ref 0 04/18/15 Hydromorphone 2 Mg Tablet2-4 Mg PO HS PRN For Pain Ref 0 04/17/15 Furosemide 20 Mg Tab60 Mg PO QAM 30 Days Ref 0 04/17/15 Discontinued Scripts Magnesium Oxide (Mag-Oxide)400 Mg Cqkcyb414 Mg PO BID 30 Days Prov:Ashlee Curiel MD 07/23/15 Warfarin Sodium (Coumadin)3 Mg Tablet3 Mg PO DAILY@17 30 Days Prov:Ashlee Curiel MD 07/23/15 History History of ENT Problems?: Yes HEENT History: Positive for:: Cataracts (s/p cataract surgery) Denies:: Abnormal Airway Difficult Intubation Dysphagia Hearing Problem Denture Type: None Teeth Condition: Within Normal Limits Hx of Heart Problems?: Yes Cardiovascular History: Positive for:: Cardiac Surgery (valve replacement and bypass surgery) Congestive Heart Failure Edema Heart Murmur (HX. AORTIC AND MITRAL VALVE INSUFFICIENCY-replaced 2003) Hypertension Pacemaker Denies:: AICD Atrial Fibrillation Chest Pain Irregular Heartbeat Thrombophlebitis Valvular Heart Disease Hx of Respiratory Problem?: Yes Respiratory History: Positive for:: Dyspnea (related to poor cardiac output.) Denies:: Asthma COPD Chest Surgery Cough Emphysema Hemoptysis Pneumonia Tuberculosis Hx Neurologic Problems?: Yes Neurological History: Positive for:: Dizziness Denies:: Alzheimer's Disease CVA Dementia Headaches Parkinson's Disease Seizures Hx of GI Problems?: Yes Hx of Problems?: No Male Hx: Denies:: Prostate Problems Scrotal Mass Testicular Surgery Hx Musculoskeletal Problems?: Yes Musculoskeletal History: Positive for:: Musculoskeletal Trauma (fall with hip fractures x3 ) Denies:: Back Injury Joint Replacement Hx of Psycho/Social Problems?: No Psycho Social History: Denies:: Anxiety Bipolar Disorder Hx Depression Suicide Attempt Hx Surgeries?: Yes (bypass surgery, mitral valve replacement, appy, pacemaker,) Hx Any Other Health Problems?: Yes Other History: Positive for:: Hospitalization (heart surgery 2003 mitral valve replaced) Denies:: Cancer Endocrine Disease Thyroid Disease History Blood Transfusions: Positive for:: Accept Blood Products? Blood Transfusions Denies:: Blood Transfuse Reaction Hx Diabetes: No Occupation: retired Hx Alcohol Use: No (minimal. none since open heart surgery in 2003.)Hx Substance Use: No Smoking Status: Former Smoker Have You Smoked inLast 12 mo: No Stop/Bang Treated for Sleep Apnea?: No Do You Have a CPAP Machine?: No S-Snoring: Do You Snore Loudly: No T-Tired: feel tired, fatigued: No O-Obsered: Observed not breath: No P-Blood Pressure: treated: Yes B- Body Mass Index > 35 kg/m2: No A- Age over 50: Yes N- Neck Large Circumference: No G- Gender Male: Yes MARTHA Total Score: 3 Risk Assessment Category Category 1A: Patient has history of documented sleep apnea, and HAS NOT received any narcotic, sedative or anesthesia administration during this stay. Category 1B: Patient has history of documented sleep apnea, and HAS received any narcotic , sedative or anesthesia administration during this stay Category 2: Patient has SUSPECTED Obstructive Sleep Apnea, and HAS received any narcotic , sedative or anesthesia administration during this stay. Category 3: Patient has SUSPECTED Obstructive Sleep Apnea and HAS NOT received narcotic, sedative or anesthesia administration during this stay. Category 4: Outpatient in Procedural Areas with known sleep apnea or who screen positive for High Risk via the STOP/BANG questionnaire. Exam Exam Vital Signs Vital Signs Date Time Temp Pulse Resp B/P Pulse Ox O2 Delivery O2 Flow Rate FiO2 12/24/16 14:43 36.8 76 18 116/54 12/24/16 13:56 36.8 76 16 121/65 12/24/16 11:25 36.8 75 20 121/66 12/24/16 11:22 36.4 76 18 111/69 94 Room Air 12/24/16 11:10 36.4 79 20 111/69 12/24/16 10:24 77 General Appearance: Alert, Oriented X3, Cooperative, No Acute Distress HEENT/AIRWAY: MP 2 Lungs: Normal Air Movement Heart: Exam Unremarkable Meds/Labs/Diagnostics Admission Meds Current Medications Sodium Chloride 1,000 ml @ 0 mls/hr Q0M ONCE IV Last administered on 20:13; Start 12/23/16 at 20:05; Stop 12/23/16 at 20:07; Status DC Phytonadione 10 mg/Sodium Chloride 51 ml @ 102 mls/hr ONCE ONCE IV Last administered on 12/23/16 23:31; Start 12/23/16 at 21:15; Stop 12/23/16 at 21:44 ; Status DC Pantoprazole 80 mg/Sodium Chloride 100 ml @ 400 mls/hr ONCE ONCE IV Last administered on 12/23/16 23:35; Start 12/23/16 at 22:00; Stop 12/23/16 at 22:14 ; Status DC Pantoprazole 80 mg/Sodium Chloride 100 ml @ 10 mls/hr Q10H IV Last administered on 12/24/16 13:48; Start 12/23/16 at 22:00 Sodium Chloride 250 ml @ ud STK-MED ONCE .ROUTE Last administered on 12/24/16 01:12; Start 12/24/16 at 00:36; Stop 12/24/16 at 00:41; Status DC Sodium Chloride (Normal Saline) 250 ml @ ud STK-MED ONCE .ROUTE Last administered on 12/24/16 03:41; Start 12/24/16 at 03:31; Stop 12/24/16 at 03:35 ; Status DC Furosemide 40 mg 40 mg ONCE ONCE IVPUSH Last administered on 12/24/16t 10:31; Start 12/24/16 at 07:55; Stop 12/24/16 at 07:58; Status DC Sodium Chloride (Normal Saline) 250 ml @ 10 mls/hr Q24H IV Last administered on 12/24/16t 10:37; Start 12/24/16 at 10:15 Labs Test 12/23/16 00:00 12/23/16 19:50 12/24/16 07:51 Urine Color Yellow (YELLOW) Urine Appearance Cloudy (CLEAR,HAZY) Urine pH 5.5 (5.0-8.0) Urine Specific [place] 1.010 (1.003-1.035) Urine Protein Tracemg/dL (NEG,TRACE) Urine Glucose (UA) Negativemg/dL (NEGATIVE) Urine Ketones Negativemg/dL (NEGATIVE) Urine Occult Blood Negative (NEGATIVE) Urine Nitrite Negative (NEGATIVE) Urine Bilirubin Negative (NEGATIVE) Urine Urobilinogen Normalmg/dL (NORMAL) Urine Leukocyte Esterase Large (NEGATIVE) Urine RBC 0-2/hpf (0-2) Urine WBC >50/hpf (0-5) Urine Epithelial Cells Few/hpf (NONE-MOD) Urine Crystals None seen (NONE SEEN) Urine Bacteria Many/hpf (NONE-FEW) Urine Hyaline Casts 5/20/lpf (NONE) Urine Granular Casts None seen (NONE SEEN) Urine Waxy Casts None seen (NONE SEEN) Urine Red Blood Cell Casts None seen (NONE SEEN) Urine White Blood Cell Casts None seen (NONE SEEN) Urine Mucus None seen (None Seen) Urine Trichomonas None seen (NONE SEEN) Urine Yeast None (NONE SEEN) Urinalysis Comment None Urine Culture Reflexed Indicated White Blood Count 3.5th/mm3 (3.8-10.1) Red Blood Count 1.85mil/mm3 (4.40-5.80) Mean Corpuscular Volume 85.9fL (81-100) Mean Corpuscular Hemoglobin 24.3pg (27.0-35.0) Mean Corpuscular Hemoglobin Concent 28.3% (32.0-37.0) Red Cell Distribution Width 14.4% (12.3-15.4) Platelet Count 163bil/L (150-400) Neutrophils (%) (Auto) 67.3% (40-74) Lymphocytes (%) (Auto) 18.9% (14-46) Monocytes (%) (Auto) 9.6% (4-12) Eosinophils (%) (Auto) 3.4% (0-5) Basophils (%) (Auto) 0.8% (0-3) Magnesium Level 2.6mg/dL (1.6-2.6) Total Bilirubin 0.3mg/dL (0.0-1.2) Aspartate Amino Transf (AST/SGOT) 14U/L (0-50) Alanine Aminotransferase (ALT/SGPT) 7U/L (0-44) Alkaline Phosphatase 67U/L (25-160) Total Protein 6.3g/dL (6.4-8.4) Albumin 3.6g/dL (3.4-5.0) Hemoglobin 6.5g/dL (13.8-17.2) Hematocrit 22.1% (41.0-50.0) Prothrombin Time 19.0sec (8.1-12.5) Prothromb Time International Ratio 1.76ratio Sodium Level 141mEq/L (134-144) Potassium Level 5.1mEq/L (3.5-5.2) Chloride Level 105mEq/L (97-108) Carbon Dioxide Level 21mmol/L (18-29) Blood Urea Nitrogen 67mg/dL (8-27) Creatinine 2.19mg/dL (0.76-1.27) Estimat Glomerular Filtration Rate 30mL/min (>59) Glucose Level 100mg/dL (60-99) Calcium Level 8.7mg/dL (8.5-10.1) Troponin T 0.054ug/L (0.0-0.011) Plan Impression Patient chart reviewed, patient interviewed and anesthestic plan with risks, benefits, and alternatives discussed, and informed consent obtained. ASA Physical Status: ASA3 Severe Disease (chf, cad) Anesthetic Plan: MAC Bene/Risks/Altern/Consents: Yes HP Complete Prior to Induction: Yes Garett Andino MD Dec 24, 2016 16:22
[2016-12-24] MEDS: Lactated Ringer's 1,000 ML IV ONE ×2 (16:40→16:51)
--- NOTE | 2016-12-24 16:56 | PCM.ENDEGD ---
EGD Date of Service: Dec 24, 2016 Physician Tad Finnegan MD Pre Procedure Diagnosis: Anemia Post Procedure Dx & Findings: Peptic ulcer esophageal narrowing esophageal ulcer galina esophagitis Procedure Esophagogastroduodenoscopy PROCEDURE IN DETAIL: After proper sedation, Olympus video endoscope was inserted into patient's mouth and esophagus was successfully intubated. Scope introduced esophagus. Esophagus showed normal shiny whitish mucosa consistent with squamous cell component. Also starting the midesophagus, there was whitish material superficially covering the mucosa. Suspect galina. Brushing for cytology done. Z line was at 35 cm from the incisors. Z line was obscured by benign- appearing peptic stricture with half millimeter ulcer. Biopsy was not done because INR was 1.7. Scope further advanced to the stomach. Stomach showed flattened rugae folds atrophic mucosa consistent with atrophic gastritis. Patient also had 3 superficial ulcers 5 mm to 8 mm in size. These were all clean-based.. Cardia fundus body antrum pylorus were all visualized. Retroflexion was done. Stomach was easily inflated and deflatable using air. Scope further events to the distal duodenum. Duodenum revealed normal villous structures with normal appearing folds without any mass ulcer erosion. Impression Peptic superficial ulcer clean base esophageal benign peptic narrowing with esophageal ulcer . The lumen was at least 15 mm in size. Scope went back and forth easily. galina esophagitis Biopsies obtained because of the INR 1.7. Recommendation Resume anticoagulation to get the INR to low therapeutic level to protect the valve. Aggressive acid suppression Obtain H. pylori antibody test. If positive treat for Helicobacter pylori. Awaiting to confirm Galina esophagus. It fits positive for Galina esophagitis then treat with fluconazole. Since we have potential source of slow bleeding, would hold off on doing colonoscopy. Presedation Assessment Risks and Benefits Informed consent was obtained from the patient after all risks and benefits including but not limited to drug reaction, infection, pain, bleeding, perforation, as well as alternatives were discussed. Patient monitoring Continuous pulse oximetry, cardiac monitoring, blood pressure monitoring, IV access, and oxygen at 2L per nasal cannula. Complications There were no periprocedural complications identified. Post Procedure Plan Post Procedure Recommendations 1. Restrict activities today. 2. Resume normal activities in the morning. 3. Resume medications. 4. GERD behavioral modification: - Avoid fatty, acidic, spicy, large meals - Do not lie down after meals - Do not eat or drink anything for at least 2 1/2 hours before going to bed at night - Discontinue tobacco and alcohol - Decrease or avoid caffeine - Avoid chocolate and mints - Decrease weight - Avoid aspirin and non steroidal anti-inflammatory agents (NSAID) such as Aleve, Advil, Mobic, Naproxen, Ibuprofen, etc 5. Add proton pump inhibitor. Take 30 minutes before 1st meal of the day. 6. Patient informed of normal post procedure side effects as bloating, drowsiness, blood streaking in the stool 7. If gastric biopsy reveal H.pylori, continue with appropriate treatment 8. If small bowel biopsy reveals celiac, continue with appropriate treatment 9. Please don't hesitate to call me with any questions Dany Mccallum MD Dec 24, 2016 16:56
--- NOTE | 2016-12-24 17:00 | PCM.ANEP1 ---
Post Anesthesia PACU Phase 1 Assessment Date of Service: Dec 24, 2016 Vital Signs 92% 84 36.5 20 98/56 Vital Signs Date Time Temp Pulse Resp B/P Pulse Ox O2 Delivery O2 Flow Rate FiO2 12/24/16 16:13 36.7 76 16 131/67 91 Room Air 12/24/16 14:43 36.8 76 18 116/54 12/24/16 13:56 36.8 76 16 121/65 12/24/16 11:25 36.8 75 20 121/66 12/24/16 11:22 36.4 76 18 111/69 94 Room Air 12/24/16 11:10 36.4 79 20 111/69 12/24/16 10:24 77 Anesthetic Administered: MAC Level of Alertness: Awake, talking ORR's with Equal Strength: Yes Pain: No Nausea or Vomiting: No CV Function & Hydration Stable: Yes Airway Device: Oxygen Delivery: Nasal Cannula Lungs: Normal Air Movement Dermatome Level: Full Sensation PACU Phase 2 Assessment Complications: No Follow up Care: N/A Patient Instructions Provided: N/A Garett Andino MD Dec 24, 2016 17:00
--- NOTE | 2016-12-24 17:49 | NUR ---
Blood Products/Endoscopy/Polst Pt transfused 1 unit FFP and 1 unit PRBC. Pt tolerated transfusions with no s/s of reaction. Pt back from endoscopy, per report no active bleeds found, pt advanced to full liquid diet this evening and nurse to advance diet as tolerated. Pt and his daughter requested a new POLST. Form was filled out and given to MD to sign. Form is currently in front of pt's chart. Pt requests DNR/DNI with limited interventions.
[2016-12-24 18:46] LABS: INR 1.34 ratio
[2016-12-24] MEDS ORDERED: Heparin 5,000 Unit/mL Inj IVPUSH ONE (19:15)
[2016-12-24] MEDS ORDERED: Heparin 5,000 Unit/mL Inj IVPUSH PRN (19:15)
--- NOTE | 2016-12-24 20:05 | PCM.CONPHA ---
Subjective Date of Service: Dec 24, 2016 Fatigue with mild shortness of breath Reason for Pharmacy Consult: Anticoagulation Management Objective Vital Signs Date Time Temp Pulse Resp B/P Pulse Ox O2 Delivery O2 Flow Rate FiO2 12/24/16 19:28 36.6 78 16 111/61 97 Nasal Cannula 2.00 12/24/16 19:00 36.8 76 16 106/56 12/24/16 19:00 36.8 76 16 106/56 90 Room Air 12/24/16 17:06 76 16 106/64 94 Room Air 12/24/16 17:00 Nasal Cannula 12/24/16 16:56 76 16 98/56 96 Nasal Cannula 2 12/24/16 16:13 36.7 76 16 131/67 91 Room Air 12/24/16 14:43 36.8 76 18 116/54 12/24/16 13:56 36.8 76 16 121/65 12/24/16 11:25 36.8 75 20 121/66 12/24/16 11:22 36.4 76 18 111/69 94 Room Air 12/24/16 11:10 36.4 79 20 111/69 12/24/16 10:24 77 12/24/16 07:52 Supplement Oxygen 12/24/16 07:52 36.6 76 18 105/64 92 Room Air 12/24/16 07:20 36.6 78 16 111/61 12/24/16 07:16 36.7 76 18 105/64 12/24/16 04:30 36.6 76 18 109/66 93 Nasal Cannula 3.50 12/24/16 04:13 36.6 76 18 94/57 12/24/16 03:59 36.6 76 16 109/59 99 Nasal Cannula 2.00 12/24/16 03:58 36.6 76 15 109/59 12/24/16 03:38 36.8 83 14 120/74 12/24/16 01:09 36.5 75 18 109/47 12/24/16 00:54 36.5 76 18 109/68 12/24/16 00:49 36.6 75 16 120/70 12/24/16 00:25 36.6 79 18 111/70 12/24/16 00:10 36.6 76 16 101/62 12/23/16 23:14 Supplement Oxygen 12/23/16 23:10 36.5 76 16 113/69 12/23/16 22:30 36.6 82 18 111/59 100 Nasal Cannula 4.00 12/23/16 22:27 76 12/23/16 22:07 76 14 101/50 96 Room Air 12/23/16 21:09 76 14 101/50 96 Room Air 12/23/16 20:39 76 13 91/49 96 Room Air 12/23/16 20:07 98/45 12/23/16 20:00 76 12 80/58 96 Room Air Intake and Output 12/22/16 12/23/16 12/24/16 00:00 00:00 00:00 Intake Total 1260 ml Balance 1260 ml Weight (Kilograms): 73.100 Height (Feet): 5 Height (Inches): 10.00 Test 12/23/16 00:00 12/23/16 19:50 12/24/16 07:51 12/24/16 18:20 Urine Color Yellow (YELLOW) Urine Appearance Cloudy (CLEAR,HAZY) Urine pH 5.5 (5.0-8.0) Urine Specific [place] 1.010 (1.003-1.035) Urine Protein Tracemg/dL (NEG,TRACE) Urine Glucose (UA) Negativemg/dL (NEGATIVE) Urine Ketones Negativemg/dL (NEGATIVE) Urine Occult Blood Negative (NEGATIVE) Urine Nitrite Negative (NEGATIVE) Urine Bilirubin Negative (NEGATIVE) Urine Urobilinogen Normalmg/dL (NORMAL) Urine Leukocyte Esterase Large (NEGATIVE) Urine RBC 0-2/hpf (0-2) Urine WBC >50/hpf (0-5) Urine Epithelial Cells Few/hpf (NONE-MOD) Urine Crystals None seen (NONE SEEN) Urine Bacteria Many/hpf (NONE-FEW) Urine Hyaline Casts 11/22/lpf (NONE) Urine Granular Casts None seen (NONE SEEN) Urine Waxy Casts None seen (NONE SEEN) Urine Red Blood Cell Casts None seen (NONE SEEN) Urine White Blood Cell Casts None seen (NONE SEEN) Urine Mucus None seen (None Seen) Urine Trichomonas None seen (NONE SEEN) Urine Yeast None (NONE SEEN) Urinalysis Comment None Urine Culture Reflexed Indicated White Blood Count 3.5th/mm3 (3.8-10.1) Red Blood Count 1.85mil/mm3 (4.40-5.80) Mean Corpuscular Volume 85.9fL (81-100) Mean Corpuscular Hemoglobin 24.3pg (27.0-35.0) Mean Corpuscular Hemoglobin Concent 28.3% (32.0-37.0) Red Cell Distribution Width 14.4% (12.3-15.4) Platelet Count 163bil/L (150-400) Neutrophils (%) (Auto) 67.3% (40-74) Lymphocytes (%) (Auto) 18.9% (14-46) Monocytes (%) (Auto) 9.6% (4-12) Eosinophils (%) (Auto) 3.4% (0-5) Basophils (%) (Auto) 0.8% (0-3) Magnesium Level 2.6mg/dL (1.6-2.6) Total Bilirubin 0.3mg/dL (0.0-1.2) Aspartate Amino Transf (AST/SGOT) 14U/L (0-50) Alanine Aminotransferase (ALT/SGPT) 7U/L (0-44) Alkaline Phosphatase 67U/L (25-160) Total Protein 6.3g/dL (6.4-8.4) Albumin 3.6g/dL (3.4-5.0) Sodium Level 141mEq/L (134-144) Potassium Level 5.1mEq/L (3.5-5.2) Chloride Level 105mEq/L (97-108) Carbon Dioxide Level 21mmol/L (18-29) Blood Urea Nitrogen 67mg/dL (8-27) Creatinine 2.19mg/dL (0.76-1.27) Estimat Glomerular Filtration Rate 30mL/min (>59) Glucose Level 100mg/dL (60-99) Calcium Level 8.7mg/dL (8.5-10.1) Hemoglobin 7.3g/dL (13.8-17.2) Hematocrit 24.3% (41.0-50.0) Prothrombin Time 14.4sec (8.1-12.5) Prothromb Time International Ratio 1.34ratio Troponin T 0.060ug/L (0.0-0.011) Assessment/Plan Assessment/Plan WARFARIN MANAGEMENT A\86yo, M admitted for acute anemia, Gi bleed repaired surgically today. History of Mech Mitral valve,CHF, CHRONIC ANEMIA, CAD Goal INR 2.5-3.5 current INR =1.76, HCT=22.1, Znr=442 Home dose Warfarin 3mg daily Pt received Vit K 10mg IV x1 P\ Warfarin 5mg po x1 tonight and will check daily INRs to adjust warfarin as needed. Santhosh Polanco [facility] Dec 24, 2016 20:05
[2016-12-25] VITALS (8 sets, daily range): BP systolic 105–133; BP diastolic 53–71; PULSE 76–87; RESP 16–18; O2SAT 90–97
[2016-12-25] MEDS: Pantoprazole Inj 80 MG in 0.9% Sodium Chloride 80 ML IV SCH (00:22)
[2016-12-25] MEDS: Heparin 25K Unit/500mL 0.45 NS 25,000 UNIT in IV Premix 1 EACH IV SCH (01:49)
--- NOTE | 2016-12-25 04:33 | NUR ---
Blood Products/Mentation Pt received 1 Unit FFP and 1 Unit PRBCs. Pt c/o severe itching on arms during transfusion of PRBCs. When asked if he has had this itching before he said that he had after he had blood going earlier in the day. was notified and an order for Benadryl 25mg Q6H was ordered PRN for itching. Pt received a dose of Benadryl at 2230 and said that it relieved the itching. Pt's VSS during the transfusion of both the FFP and PRBCs and pt tolerated the procedure well. Pt began shift AOx3. Throughout the shift pt became confused and has to be reoriented to where he was when he would awaken. Pt is currently alert and oriented to self and family. Pt now has a mich alarm on the bed and one for when he wants to sit in the chair at the bedside. Will continue to monitor pt.
[2016-12-25 08:44] LABS: INR 1.26 ratio
--- NOTE | 2016-12-25 11:01 | NUR ---
Social Work: Readiness for d/c Data: Pt is on day 2 of hospitalization. EMR reviewed, pt discussed in rounds. states pt likely ready for d/c tomorrow. SALES OPERATIONS DIRECTOR spoke with Edie with [facility] who confirms that if pt can transfer into his wheelchair he can return. Edie requested clinicals to be faxed and she will review, but she thinks they do not need to complete a bedside assessment on pt before return. SALES OPERATIONS DIRECTOR faxed clinicals, Edie will call back if bedside assessment is needed. SALES OPERATIONS DIRECTOR will continue to follow. Assessment: Pt from [facility]. Plan: Pt will d/c back to [facility] via POV with family. Edie will call back if bedside assessment is needed. SALES OPERATIONS DIRECTOR will continue to follow. STEPHANIE Bruce
[2016-12-25] MEDS: Lansoprazole 30 mg ODTablet PO SCH ×2 (11:28→20:10)
[2016-12-25] MEDS: 0.9% Sodium Chloride 250 ML IV SCH ×2 (11:35→17:47)
--- NOTE | 2016-12-25 11:50 | PCM.PNMED ---
Subjective Date of Service Dec 25, 2016 Subjective He is doing well. No abdominal pain. No nausea. He is soft mechanical diet without difficulty. No bowel movements overnight. His hematocrit remained stable. His energy is better. No chest pain or dyspnea. Exam Vital Signs Vital Sign - Last Date Time Temp Pulse Resp B/P Pulse Ox O2 Delivery O2 Flow Rate FiO2 12/25/16 09:30 36.7 76 16 105/53 91 Room Air 12/25/16 04:36 1.50 Intake and Output 12/24/16 12/24/16 12/25/16 Cumulative From/Thru 15:00 23:00 07:00 12/23/16 19:35 - 12/25/16 05:10 Intake Total 1130 ml 346 ml 1477 ml 5053 ml Output Total 1675 ml 600 ml 2625 ml Balance 1130 ml -1329 ml 877 ml 2428 ml Intake Oral 150 ml 200 ml 350 ml IV Total 180 ml 196 ml 962 ml 2768 ml Packed Cells 300 ml 315 ml 915 ml FFP 650 ml 1020 ml Output Urine Total 1675 ml 600 ml 2625 ml # Bowel Movements 1 1 Exam Alert and oriented -3, no distress. Fluent speech Anicteric sclera. Lungs are clear with normal rate and effort Heart is regular without murmur gallop or rub, mechanical mitral valve is audible Abdomen soft nontender, flat Extremities are free of edema. Skin is free of rash or lesions. Except his many ecchymoses on his forearms bilaterally. IVs and Medications Medications Reviewed: Medications were reviewed in detail Lab and Diagnostics Result Diagram: 12/25/16 0737 12/24/16 0751 X-Rays, CTs and MRIs X-RAY CHEST ONE VIEW, PORTABLE ([id number]) IMPRESSION: 1. Focal opacity in the right lung base consistent with atelectasis versus pneumonia. 2. Cephalization of pulmonary vasculature suspicious for CHF Dictated by: Stephanie Hall MD, PhD on 12/23/2016 at 20:56 Approved by: Stephanie Hall MD, PhD on 12/23/2016 at 20:57 Cardiac Echo Impressions Previously performed Echocardiogram Report in April 2015 Interpretation Summary The left ventricle is normal in size. The ejection fraction is estimated to be 15-20%. Compared to the prior exam, left ventricular function is significantly decreased. The right ventricle is moderate to severely dilated. Right ventricular systolic function is moderate to severely reduced. Both atria are severely dilated. Both atria have remained unchanged in size since the prior echo exam. There are two AICD wires present in the right ventricle. In Apical view, a ill visualized, small mobile structure seen, appears to be attached to the AICD lead at the tricuspid valve level. Differential diagnosis includes: Thrombus versus small vegetation or residual chordae. Consider RAMONA. There is a mechanical mitral valve. The prosthetic mitral valve is well-seated. Cannot assess the presence or severity of regurgitation due to shielding from the prosthesis. The mitral E velocity is about 1.84 meter/sec. In 01/13/2013 it was 1.88 meter/sec. An annuloplasty ring is noted in the tricuspid position. There is mild to moderate tricuspid regurgitation.Compared to the prior echo exam, there has been an increase in TR severity. The right ventricular systolic pressure is estimated at 65 mmHg assuming a right atrial pressure of 15 mm Hg. Compared to the prior echo exam, there has been an increase in the severity of pulmonary hypertension. There are moderately large-sized bilateral pleural effusions noted. Reading Physician:PM Assessment & Plan Patient is an 86-year-old male with past medical history remarkable for coronary artery disease post CABG as well as mitral valve replacement with mechanical valve chronically on Coumadin who presents with several weeks of worsening fatigue. # Acute blood loss anemia, POA and stable. Physical medical stable at 27 after 4 units of blood. We will follow every 12 hours hematocrits. # Acute upper GI bleed, POA and resolved. This is secondary to presumed PUD with subacute blood loss anemia. 3 gastric ulcers visualized, nonbleeding and no visible vessels. We will convert for Protonix drip to a PPI twice a day orally. Biopsies are pending. # Elevated troponins, improved. This likely relates to his moderately severe anemia and demand ischemia. No further workup this point. We will follow clinically. # Acute on Chronic systolic congestive heart failure, POA resolved. He was diuresed during and after his transfusions and is compensated at this morning.. # Acute kidney injury, POA and improving. Follow laboratories. 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 # Chronic Coronary artery disease, POA and stable. We will try to maintain hematocrit of 26 or 7 and above. # Chronic Hypertension. POA and stable continue current medications # Benign prostatic hypertrophy, POA and stable. We will resume BPH medications. 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 Marie - Platelet count of 163 admission - Anemia is likely due to acute blood loss - Monitor # Gastroesophageal reflux disease. - Pantoprazole bolus and drip ordered for upper GI bleed DVT prophylaxis: Patient is chronically anticoagulated on warfarin and is currently contraindicated further anticoagulation given upper GI bleed GI prophylaxis: Pantoprazole drip CODE STATUS: Full code The patient is admitted to inpatient status with expected length of stay greater than to midnights given presenting symptoms, likely diagnosis, possible complications and required treatment. GI Prophylaxis: Proton Pump Inhibitor VTE Prophylaxis: Theraputic Anticoag with Warfarin Resuscitation Status: CPR: Attempt Resuscitation Jesus Gibbs MD Dec 25, 2016 11:49
[2016-12-25] MEDS ORDERED: Pantoprazole 4 mg/mL 10 mL Inj IVPUSH SCH (16:30)
--- NOTE | 2016-12-25 16:35 | NUR ---
Forgetful Pt was A&O X3 this AM. Sometimes slow to answer but answered appropriately. Pt able to ambulate to the BSC weakly. Around 1600 pt woke from a nap and was continuously confused about whether it was AM or PM. Needing constant re-orienting. Now A&O X1 only to self. Wrote on the white board that it was PM and that it was almost time for dinner. Helpful.
[2016-12-25] MEDS ORDERED: Furosemide 10 mg/mL 4 mL Inj IVPUSH ONE (17:10)
[2016-12-25 18:13] LABS: Magnesium 2.3 mg/dL (1.6-2.6)
--- NOTE | 2016-12-25 20:57 | PCM.PNMED ---
Subjective Date of Service Dec 25, 2016 Subjective He has no complaints. He said he is doing well. He has denies any chest pain shortness of breath or abdominal pain. Exam Vital Signs Vital Sign - Last Date Time Temp Pulse Resp B/P Pulse Ox O2 Delivery O2 Flow Rate FiO2 12/25/16 20:01 37.1 76 16 124/63 96 Nasal Cannula 1.00 Intake and Output 12/24/16 12/24/16 12/25/16 Cumulative From/Thru 15:00 23:00 07:00 12/23/16 19:35 - 12/25/16 05:10 Intake Total 1130 ml 346 ml 1477 ml 5053 ml Output Total 1675 ml 600 ml 2625 ml Balance 1130 ml -1329 ml 877 ml 2428 ml Intake Oral 150 ml 200 ml 350 ml IV Total 180 ml 196 ml 962 ml 2768 ml Packed Cells 300 ml 315 ml 915 ml FFP 650 ml 1020 ml Output Urine Total 1675 ml 600 ml 2625 ml # Bowel Movements 1 1 Exam Patient is alert and oriented and does appear comfortable. However he is still using oxygen and it appears that there is a little bit of effort to breathe. Head and neck no icterus Lungs with decreased breath sounds on the basis and it slowly clears up further up. Cardiovascular regular rate and rhythm S1 and S2 mechanical valve. Abdomen soft nontender and nondistended with normoactive bowel sounds Skin shows no jaundice Lab and Diagnostics Result Diagram: 12/25/16 1740 12/25/16 1740 X-Rays, CTs and MRIs X-RAY CHEST ONE VIEW, PORTABLE ([id number]) IMPRESSION: 1. Focal opacity in the right lung base consistent with atelectasis versus pneumonia. 2. Cephalization of pulmonary vasculature suspicious for CHF Dictated by: Stephanie Hall MD, PhD on 12/23/2016 at 20:56 Approved by: Stephanie Hall MD, PhD on 12/23/2016 at 20:57 Cardiac Echo Impressions Previously performed Echocardiogram Report in April 2015 Interpretation Summary The left ventricle is normal in size. The ejection fraction is estimated to be 15-20%. Compared to the prior exam, left ventricular function is significantly decreased. The right ventricle is moderate to severely dilated. Right ventricular systolic function is moderate to severely reduced. Both atria are severely dilated. Both atria have remained unchanged in size since the prior echo exam. There are two AICD wires present in the right ventricle. In Apical view, a ill visualized, small mobile structure seen, appears to be attached to the AICD lead at the tricuspid valve level. Differential diagnosis includes: Thrombus versus small vegetation or residual chordae. Consider RAMONA. There is a mechanical mitral valve. The prosthetic mitral valve is well-seated. Cannot assess the presence or severity of regurgitation due to shielding from the prosthesis. The mitral E velocity is about 1.84 meter/sec. In 01/13/2013 it was 1.88 meter/sec. An annuloplasty ring is noted in the tricuspid position. There is mild to moderate tricuspid regurgitation.Compared to the prior echo exam, there has been an increase in TR severity. The right ventricular systolic pressure is estimated at 65 mmHg assuming a right atrial pressure of 15 mm Hg. Compared to the prior echo exam, there has been an increase in the severity of pulmonary hypertension. There are moderately large-sized bilateral pleural effusions noted. Reading Physician:PM Assessment & Plan Patient is an 86-year-old male with past medical history remarkable for coronary artery disease post CABG as well as mitral valve replacement with mechanical valve chronically on Coumadin who presents with several weeks of worsening fatigue. He is anticoagulated and his hemoglobin is stable. Minimal evidence of persistent bleeding. Likely cause of the anemia was the supratherapeutic INR with underlying ulcers. Biopsy still pending. Microbiology reviewed and there is no fungus from the brushing. However urinary tract infection with Escherichia coli noted. Patient does not appear to be on antibiotic. Please start antibiotics urinary tract infection. Please obtain chest x-rays. I have asked the nurse to contact the night float to obtain orders for the antibiotics and chest x-rays. If she is unable to contact him, I asked her to contact me. GI Prophylaxis: Proton Pump Inhibitor VTE Prophylaxis: Theraputic Anticoag with Warfarin Resuscitation Status: CPR: Attempt Resuscitation Dany Mccallum MD Dec 25, 2016 20:57
[2016-12-26] VITALS (10 sets, daily range): BP systolic 94–136; BP diastolic 52–69; PULSE 76–82; RESP 16–24; O2SAT 92–98
[2016-12-26 02:07] LABS: INR 1.49 ratio
[2016-12-26] MEDS: Heparin 25K Unit/500mL 0.45 NS 25,000 UNIT in IV Premix 1 EACH IV SCH (03:16)
[2016-12-26 04:40] LABS: APPEARANCE,URINE CLOUDY (CLEAR,HAZY); COLOR,URINE YELLOW (YELLOW)
[2016-12-26 04:41] LABS: OCCULT BLOOD,URINE MODERATE (NEGATIVE); UROBILINOGEN,URINE NORMAL (NORMAL)
--- NOTE | 2016-12-26 05:56 | NUR ---
Mentation/Bleeding/BM/Respiratory Pt has remained AOx3 throughout the shift. Pt is UTI positive and MD has been made aware of this. Pt has 2 puncture wounds, one on right hand and once on left AC, that continue to bleed. Manual pressure and a compression dressing have been applied to both sites and yet the sites continue to slowly bleed. Redressed both sites with compression dressings and made MD aware of this issue. Pt had a BM this morning and had some ana rosa blood when pt's buttocks was wiped. Will continue to monitor pt for bleeding. Pt's current PTT is 69.0 and pt's Heparin drip is currently running at 1000 Units/Hr. Pt has c/o SOB and dyspnea when getting up to the BSC or chair. Pt's SpO2 continues to be >92% on 1L NC. Pt does not use O2 at baseline. Pt's bilateral lung bases have crackles. Dr. Mccallum requested a CXR be ordered regarding pt's lung sounds and increased effort to breath. Pt has an order for a portable CXR to be performed today.
[2016-12-26] MEDS: Lansoprazole 30 mg ODTablet PO SCH ×2 (09:25→20:57)
[2016-12-26] MEDS: 0.9% Sodium Chloride 250 ML IV SCH ×2 (11:45→14:15)
[2016-12-26] MEDS: cefTRIAXone Inj 1,000 MG in Dextrose 5% Minibag Plus 50 ML IV SCH (11:45)
--- NOTE | 2016-12-26 12:04 | PCM.PHAPRO ---
Progress Fatigue with mild shortness of breath WARFARIN Indication: MVR Target INR 2.5(-3.5) Home dose: 3mg/d Date Dec 25Dec 26Dec 27Dec 28Dec 29Dec 30 INR 1.76 1.26 1.49 INR change -0.5 0.23 Warf Dose 5 5MG X1 3MG/D a/ Received 10mg vitamin K IV on 12/24 and will remain in the shadow of this effect for several more day. p/ Resume home dosing. Jonh Alvarez Pharm D Dec 26, 2016 12:04
[2016-12-26] MEDS ORDERED: Furosemide 10 mg/mL 4 mL Inj IVPUSH ONE ×2 (12:15→19:00)
--- NOTE | 2016-12-26 12:19 | PCM.PNMED ---
Subjective Date of Service Dec 26, 2016 Subjective He is doing fairly well. He had 1 bowel movement today unsure of the color. His hematocrit is stable. He will still feel somewhat weak. He denies urinary symptoms. Urine culture does reveal 100,000 CFU's and Escherichia coli. He denies any palpitations or chest pain. He is somewhat short of breath and was not out of bed yesterday. Exam Vital Signs Vital Sign - Last Date Time Temp Pulse Resp B/P Pulse Ox O2 Delivery O2 Flow Rate FiO2 12/26/16 11:59 36.9 77 20 120/69 96 Nasal Cannula 1.00 Intake and Output 12/25/16 12/25/16 12/26/16 Cumulative From/Thru 15:00 23:00 07:00 12/23/16 19:35 - 12/26/16 05:55 Intake Total 986 ml 657 ml 6696 ml Output Total 450 ml 1975 ml 5050 ml Balance 536 ml -1318 ml 1646 ml Intake Oral 625 ml 400 ml 1375 ml IV Total 361 ml 257 ml 3386 ml Packed Cells 915 ml FFP 1020 ml Output Urine Total 450 ml 1975 ml 5050 ml # Bowel Movements 2 3 Exam Alert and oriented -3, no distress. Fluent speech, is some more tachypneic. Anicteric sclera. Lungs are clear with increased rate and normal effort, decreased breath sounds in the bases bilaterally. Heart is regular without murmur gallop or rub Abdomen soft nontender, flat Extremities are free of edema. Skin is free of rash or lesions. IVs and Medications Medications Reviewed: Medications were reviewed in detail Lab and Diagnostics Result Diagram: 12/26/16 0150 12/25/16 1740 X-Rays, CTs and MRIs X-RAY CHEST ONE VIEW, PORTABLE ([id number]) IMPRESSION: 1. Focal opacity in the right lung base consistent with atelectasis versus pneumonia. 2. Cephalization of pulmonary vasculature suspicious for CHF Dictated by: Stephanie Hall MD, PhD on 12/23/2016 at 20:56 Approved by: Setphanie Hall MD, PhD on 12/23/2016 at 20:57 Cardiac Echo Impressions Previously performed Echocardiogram Report in April 2015 Interpretation Summary The left ventricle is normal in size. The ejection fraction is estimated to be 15-20%. Compared to the prior exam, left ventricular function is significantly decreased. The right ventricle is moderate to severely dilated. Right ventricular systolic function is moderate to severely reduced. Both atria are severely dilated. Both atria have remained unchanged in size since the prior echo exam. There are two AICD wires present in the right ventricle. In Apical view, a ill visualized, small mobile structure seen, appears to be attached to the AICD lead at the tricuspid valve level. Differential diagnosis includes: Thrombus versus small vegetation or residual chordae. Consider RAMONA. There is a mechanical mitral valve. The prosthetic mitral valve is well-seated. Cannot assess the presence or severity of regurgitation due to shielding from the prosthesis. The mitral E velocity is about 1.84 meter/sec. In 01/13/2013 it was 1.88 meter/sec. An annuloplasty ring is noted in the tricuspid position. There is mild to moderate tricuspid regurgitation.Compared to the prior echo exam, there has been an increase in TR severity. The right ventricular systolic pressure is estimated at 65 mmHg assuming a right atrial pressure of 15 mm Hg. Compared to the prior echo exam, there has been an increase in the severity of pulmonary hypertension. There are moderately large-sized bilateral pleural effusions noted. Reading Physician:PM Assessment & Plan # Acute blood loss anemia, POA and stable. hct remains stable at 26 after 4 units of blood. We will follow every 12 hours hematocrits. No clinical evidence of rebleeding. # Acute upper GI bleed, POA and resolved. Sources PUD with 3 gastric ulcers. This is secondary to presumed PUD with subacute blood loss anemia. 3 gastric ulcers visualized, nonbleeding and no visible vessels. We will convert for Protonix drip to a PPI twice a day orally. Biopsies are pending. # Elevated troponins, improved. No clinical symptoms of cardiac ischemia. This likely relates to his moderately severe anemia and demand ischemia. No further workup this point. We will follow clinically. # Acute on Chronic systolic congestive heart failure, POA active. He remains symptomatic and shows evidence of acute systolic heart failure we will diurese him with Lasix 40 IV twice today. # Acute kidney injury, POA and improving. Follow laboratories. Avoid nephrotoxic medications. #. Urinary tract infection, new. No Nguyen involved. Escherichia coli, pansensitive. Ceftriaxone 1 g IV every 24 hours started today. 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 He remained subtherapeutic, continue bridge. # Chronic Coronary artery disease, POA and stable. We will try to maintain hematocrit of 26 or 7 and above. # Chronic Hypertension. POA and stable continue current medications # Benign prostatic hypertrophy, POA and stable. We will resume BPH medications. 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 Marie - Platelet count of 163 admission - Anemia is likely due to acute blood loss - Monitor # Gastroesophageal reflux disease. - Pantoprazole bolus and drip ordered for upper GI bleed DVT prophylaxis: Patient is chronically anticoagulated on warfarin and is currently contraindicated further anticoagulation given upper GI bleed GI prophylaxis: Pantoprazole drip CODE STATUS: Full code GI Prophylaxis: Proton Pump Inhibitor VTE Prophylaxis: Theraputic Anticoag with Warfarin Resuscitation Status: CPR: Attempt Resuscitation Jesus Gibbs MD Dec 26, 2016 12:19
--- NOTE | 2016-12-26 14:22 | DRSVH ---
PROCEDURE: X-RAY CHEST ONE VIEW, PORTABLE ([id number]) INDICATIONS: dyspnea/SOB/lungs sounds wet TECHNIQUE: One view of the chest was acquired. COMPARISON: 12/24/2016 FINDINGS: Surgical changes and devices: AICD, aVR and median sternotomy. Lungs and pleura: No pleural effusions or pneumothorax. Previous infiltrate in the right lower lobe has increased in severity. Mild prominence of upper lobe pulmonary vessels. Probable small right pleu ral effusion. Mediastinum: Mediastinal contours appear normal. Heart size is normal. Bones and chest wall: No suspicious bony lesions. Overlying soft tissues appear unremarkable. IMPRESSION: 1. Postoperative changes. 2. Increased right lower lobe infiltrate which likely represents pneumonia with small effusion. Dictated by: Obdulio Paris M.D. on 12/26/2016 at 14:18 Approved by: Obdulio Paris M.D. on 12/26/2016 at 14:20
--- NOTE | 2016-12-26 14:33 | PCM.PNMED ---
Subjective Date of Service Dec 26, 2016 Subjective Patient had no bowel movement today or yesterday. Denies any abdominal pain. Exam Vital Signs Vital Sign - Last Date Time Temp Pulse Resp B/P Pulse Ox O2 Delivery O2 Flow Rate FiO2 12/26/16 11:59 36.9 77 20 120/69 96 Nasal Cannula 1.00 Intake and Output 12/25/16 12/25/16 12/26/16 Cumulative From/Thru 15:00 23:00 07:00 12/23/16 19:35 - 12/26/16 05:55 Intake Total 986 ml 657 ml 6696 ml Output Total 450 ml 1975 ml 5050 ml Balance 536 ml -1318 ml 1646 ml Intake Oral 625 ml 400 ml 1375 ml IV Total 361 ml 257 ml 3386 ml Packed Cells 915 ml FFP 1020 ml Output Urine Total 450 ml 1975 ml 5050 ml # Bowel Movements 2 3 Exam Patient is alert oriented comfortable. Appears again short of breath. Head and neck no icterus Lungs decreased breath sounds at the bases but not worse than yesterday. Cardiovascular regular rate rhythm with mechanical click. Abdomen soft nontender nondistended with normoactive bowel sounds Extremities no pitting edema at ankles Skin shows no jaundice. Lab and Diagnostics Result Diagram: 12/26/16 0150 12/25/16 1740 X-Rays, CTs and MRIs X-RAY CHEST ONE VIEW, PORTABLE ([id number]) IMPRESSION: 1. Focal opacity in the right lung base consistent with atelectasis versus pneumonia. 2. Cephalization of pulmonary vasculature suspicious for CHF Dictated by: Stephanie Hall MD, PhD on 12/23/2016 at 20:56 Approved by: Stephanie Hall MD, PhD on 12/23/2016 at 20:57 Cardiac Echo Impressions Previously performed Echocardiogram Report in April 2015 Interpretation Summary The left ventricle is normal in size. The ejection fraction is estimated to be 15-20%. Compared to the prior exam, left ventricular function is significantly decreased. The right ventricle is moderate to severely dilated. Right ventricular systolic function is moderate to severely reduced. Both atria are severely dilated. Both atria have remained unchanged in size since the prior echo exam. There are two AICD wires present in the right ventricle. In Apical view, a ill visualized, small mobile structure seen, appears to be attached to the AICD lead at the tricuspid valve level. Differential diagnosis includes: Thrombus versus small vegetation or residual chordae. Consider RAMONA. There is a mechanical mitral valve. The prosthetic mitral valve is well-seated. Cannot assess the presence or severity of regurgitation due to shielding from the prosthesis. The mitral E velocity is about 1.84 meter/sec. In 01/13/2013 it was 1.88 meter/sec. An annuloplasty ring is noted in the tricuspid position. There is mild to moderate tricuspid regurgitation.Compared to the prior echo exam, there has been an increase in TR severity. The right ventricular systolic pressure is estimated at 65 mmHg assuming a right atrial pressure of 15 mm Hg. Compared to the prior echo exam, there has been an increase in the severity of pulmonary hypertension. There are moderately large-sized bilateral pleural effusions noted. Reading Physician:PM Assessment & Plan Patient is an 86-year-old male with past medical history remarkable for coronary artery disease post CABG as well as mitral valve replacement? Aortic valve replacement? with mechanical valve chronically on Coumadin who presents with several weeks of worsening fatigue. He is anticoagulated and his hemoglobin is stable. Minimal evidence of persistent bleeding. She did have a bowel movement at 2:00 in the morning according to the chart and it was guaiac positive. Again patient and when I spoke to the nurse, no bowel movement today. Hemoglobin went from 8.4-7.9. We will see how the hemoglobin level is tomorrow. Likely cause of the anemia was the supratherapeutic INR with underlying ulcers. Biopsy still pending. Microbiology reviewed and there is no fungus from the brushing. GI Prophylaxis: Proton Pump Inhibitor VTE Prophylaxis: Theraputic Anticoag with Warfarin Resuscitation Status: CPR: Attempt Resuscitation Dany Mccallum MD Dec 26, 2016 14:29
--- NOTE | 2016-12-26 15:18 | NUR ---
Called and spoke with Maryann at [facility], she was advised by her DON that a bedside assessment is not needed for patient over the weekend. She was concerned about patient having a BM before discharge and that is noted he had one today. Patient was not on any oxygen prior to this admission but he can return with it if needed as long as orders are place per Maryann. He has a hx of O2 but not recent. They are willing to accept over the weekend if needed. Updated [employer]
[2016-12-27] VITALS (10 sets, daily range): BP systolic 122–148; BP diastolic 52–74; PULSE 71–83; RESP 16–24; O2SAT 90–95
[2016-12-27 03:37] LABS: INR 2.32 ratio
[2016-12-27] MEDS: Heparin 25K Unit/500mL 0.45 NS 25,000 UNIT in IV Premix 1 EACH IV SCH (04:19)
--- NOTE | 2016-12-27 06:27 | NUR ---
Rest/Mentation Pt c/o not being able to go to sleep and requested a medication to assist him in getting to sleep. MD was paged and 5mg melatonin was ordered and administered to the pt. Pt continued to use call light to ask for something to help him with sleep. Pt was reminded each time that he already had received a medication to assist him with getting to sleep and then would ask for another. Pt was told that he already got the medication to help with sleep and that he could not have another one. Pt eventually went to sleep and got approximately 4 hours sleep before waking up again and asking for the medication for sleep.
[2016-12-27] MEDS: 0.9% Sodium Chloride 250 ML IV SCH ×3 (08:13→13:38)
[2016-12-27] MEDS: Lansoprazole 30 mg ODTablet PO SCH ×2 (08:13→20:39)
[2016-12-27] MEDS: cefTRIAXone Inj 1,000 MG in Dextrose 5% Minibag Plus 50 ML IV SCH (08:13)
--- NOTE | 2016-12-27 09:23 | PCM.PNMED ---
Subjective Date of Service Dec 27, 2016 Subjective His breathing is improved. He is still slightly short of breath. No chest pain. No rectal bleeding. He is still somewhat weak. No nausea. He does have right foot pain which is over the midfoot. No trauma or swallowing. No history of gout. No overnight events Exam Vital Signs Vital Sign - Last Date Time Temp Pulse Resp B/P Pulse Ox O2 Delivery O2 Flow Rate FiO2 12/27/16 08:11 36.7 71 22 127/72 95 Nasal Cannula 1.00 Intake and Output 12/26/16 12/26/16 12/27/16 Cumulative From/Thru 15:00 23:00 07:00 12/23/16 19:35 - 12/27/16 05:59 Intake Total 50 ml 1171 ml 7917 ml Output Total 1625 ml 1070 ml 7745 ml Balance -1575 ml 101 ml 172 ml Intake Oral 50 ml 480 ml 1905 ml IV Total 691 ml 4077 ml Packed Cells 915 ml FFP 1020 ml Output Urine Total 1625 ml 1070 ml 7745 ml # Bowel Movements 1 0 4 Exam Alert and oriented -3, no distress. Fluent speech, mild dyspnea with talking Anicteric sclera. Lungs are clear with normal rate and effort, decreased breath sounds in the bases Heart is regular without murmur gallop or rub Abdomen soft nontender, flat Extremities are free of edema. Skin is free of rash or lesions. The right foot is examined and has tenderness over the second metatarsal. No obvious swelling or erythema, good pulses. IVs and Medications Medications Reviewed: Medications were reviewed in detail Lab and Diagnostics Result Diagram: 12/26/16 0150 12/27/16 0300 X-Rays, CTs and MRIs X-RAY CHEST ONE VIEW, PORTABLE ([id number]) IMPRESSION: 1. Focal opacity in the right lung base consistent with atelectasis versus pneumonia. 2. Cephalization of pulmonary vasculature suspicious for CHF Dictated by: Stephanie Hall MD, PhD on 12/23/2016 at 20:56 Approved by: Stephanie Hall MD, PhD on 12/23/2016 at 20:57 Cardiac Echo Impressions Previously performed Echocardiogram Report in April 2015 Interpretation Summary The left ventricle is normal in size. The ejection fraction is estimated to be 15-20%. Compared to the prior exam, left ventricular function is significantly decreased. The right ventricle is moderate to severely dilated. Right ventricular systolic function is moderate to severely reduced. Both atria are severely dilated. Both atria have remained unchanged in size since the prior echo exam. There are two AICD wires present in the right ventricle. In Apical view, a ill visualized, small mobile structure seen, appears to be attached to the AICD lead at the tricuspid valve level. Differential diagnosis includes: Thrombus versus small vegetation or residual chordae. Consider RAMONA. There is a mechanical mitral valve. The prosthetic mitral valve is well-seated. Cannot assess the presence or severity of regurgitation due to shielding from the prosthesis. The mitral E velocity is about 1.84 meter/sec. In 01/13/2013 it was 1.88 meter/sec. An annuloplasty ring is noted in the tricuspid position. There is mild to moderate tricuspid regurgitation.Compared to the prior echo exam, there has been an increase in TR severity. The right ventricular systolic pressure is estimated at 65 mmHg assuming a right atrial pressure of 15 mm Hg. Compared to the prior echo exam, there has been an increase in the severity of pulmonary hypertension. There are moderately large-sized bilateral pleural effusions noted. Reading Physician:PM Assessment & Plan # Acute blood loss anemia, POA and stable. hct remains stable at 26 after 4 units of blood. We will follow every 12 hours hematocrits. No clinical evidence of rebleeding. We will give him 1 additional unit of blood to get to hematocrit of 27 given his history of heart disease. # Acute upper GI bleed, POA and resolved. Sources PUD with 3 gastric ulcers. No evidence of rebleeding, follow clinically. This is secondary to presumed PUD with subacute blood loss anemia. 3 gastric ulcers visualized, nonbleeding and no visible vessels. We will convert for Protonix drip to a PPI twice a day orally. Biopsies are pending. # Elevated troponins, improved. No clinical symptoms of cardiac ischemia. No further workup. This likely relates to his moderately severe anemia and demand ischemia. No further workup this point. We will follow clinically. # Acute on Chronic systolic congestive heart failure, POA active. We will give him an additional 40 Lasix this morning and 1 after his unit of blood. # Acute kidney injury, POA and improving. Follow laboratories. Avoid nephrotoxic medications. #. Right foot pain, new. We will use prednisone 40 by mouth 1 and ice. Follow clinically. #. Chronic pain with continuous opiate dependence, POA. Will resume his patch every 72 hours. #. Urinary tract infection, new. No Nguyen involved. Escherichia coli, pansensitive. Ceftriaxone 1 g IV every 24 hours started today. 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 He remained subtherapeutic, continue bridge. # Chronic Coronary artery disease, POA and stable. We will try to maintain hematocrit of 26 or 7 and above. # Chronic Hypertension. POA and stable continue current medications # Benign prostatic hypertrophy, POA and stable. We will resume BPH medications. 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 Marie - Platelet count of 163 admission - Anemia is likely due to acute blood loss - Monitor # Gastroesophageal reflux disease. - Pantoprazole bolus and drip ordered for upper GI bleed DVT prophylaxis: Patient is chronically anticoagulated on warfarin and is currently contraindicated further anticoagulation given upper GI bleed GI prophylaxis: Pantoprazole drip CODE STATUS: Full code GI Prophylaxis: Proton Pump Inhibitor VTE Prophylaxis: Theraputic Anticoag with Warfarin Resuscitation Statu. GI Prophylaxis: Proton Pump Inhibitor VTE Prophylaxis: Theraputic Anticoag with Warfarin Resuscitation Status: CPR: Attempt Resuscitation Jesus Gibbs MD Dec 27, 2016 09:23
[2016-12-27] MEDS ORDERED: Furosemide 10 mg/mL 4 mL Inj IVPUSH ONE ×2 (09:25→18:00)
[2016-12-27] MEDS ORDERED: predniSONE 20 mg Tablet PO ONE (09:25)
--- NOTE | 2016-12-27 09:29 | PCM.PHAPRO ---
Progress Date of Service: Dec 27, 2016 Warfarin dosing Date Dec 25-Dec 26-Dec 27 INR 1.76 1.26 1.49 2.32 INR change -0.5 0.23 0.83 Warf Dose 5MG 5MG 3MG HOLD A/ INR is therapeutic, but with a sharp upward trend. P/ Hold dose today anticipating a further upward trend if dosing was continued. Taran Yoder Dec 27, 2016 09:29
--- NOTE | 2016-12-27 10:42 | PCM.PNMED ---
Subjective Date of Service Dec 27, 2016 Subjective had BM yesterday and he notes that the darkness of the stool seems to be clearing. No BM this am. Exam Vital Signs Vital Sign - Last Date Time Temp Pulse Resp B/P Pulse Ox O2 Delivery O2 Flow Rate FiO2 12/27/16 08:11 36.7 71 22 127/72 95 Nasal Cannula 1.00 Intake and Output 12/26/16 12/26/16 12/27/16 Cumulative From/Thru 15:00 23:00 07:00 12/23/16 19:35 - 12/27/16 05:59 Intake Total 50 ml 1171 ml 7917 ml Output Total 1625 ml 1070 ml 7745 ml Balance -1575 ml 101 ml 172 ml Intake Oral 50 ml 480 ml 1905 ml IV Total 691 ml 4077 ml Packed Cells 915 ml FFP 1020 ml Output Urine Total 1625 ml 1070 ml 7745 ml # Bowel Movements 1 0 4 Exam alert oriented and comfortable. HEENT: no icterus LUNG : lung bases are more clear CV RRR S1S2 mechancal click noted ABD soft nt nd nabs EXT no pitting edema of ankles Lab and Diagnostics Result Diagram: 12/26/16 0150 12/27/16 0300 X-Rays, CTs and MRIs X-RAY CHEST ONE VIEW, PORTABLE ([id number]) IMPRESSION: 1. Focal opacity in the right lung base consistent with atelectasis versus pneumonia. 2. Cephalization of pulmonary vasculature suspicious for CHF Dictated by: Stephanie Hall MD, PhD on 12/23/2016 at 20:56 Approved by: Stephanie Hall MD, PhD on 12/23/2016 at 20:57 Cardiac Echo Impressions Previously performed Echocardiogram Report in April 2015 Interpretation Summary The left ventricle is normal in size. The ejection fraction is estimated to be 15-20%. Compared to the prior exam, left ventricular function is significantly decreased. The right ventricle is moderate to severely dilated. Right ventricular systolic function is moderate to severely reduced. Both atria are severely dilated. Both atria have remained unchanged in size since the prior echo exam. There are two AICD wires present in the right ventricle. In Apical view, a ill visualized, small mobile structure seen, appears to be attached to the AICD lead at the tricuspid valve level. Differential diagnosis includes: Thrombus versus small vegetation or residual chordae. Consider RAMONA. There is a mechanical mitral valve. The prosthetic mitral valve is well-seated. Cannot assess the presence or severity of regurgitation due to shielding from the prosthesis. The mitral E velocity is about 1.84 meter/sec. In 01/13/2013 it was 1.88 meter/sec. An annuloplasty ring is noted in the tricuspid position. There is mild to moderate tricuspid regurgitation.Compared to the prior echo exam, there has been an increase in TR severity. The right ventricular systolic pressure is estimated at 65 mmHg assuming a right atrial pressure of 15 mm Hg. Compared to the prior echo exam, there has been an increase in the severity of pulmonary hypertension. There are moderately large-sized bilateral pleural effusions noted. Reading Physician:PM Assessment & Plan Patient is an 86-year-old male with past medical history remarkable for coronary artery disease post CABG as well as mitral valve replacement? Aortic valve replacement? with mechanical valve chronically on Coumadin who presents with several weeks of worsening fatigue. He is anticoagulated and his hemoglobin is stable. Hgb 7.3 to 8.6 to 8.4 to 7.9. 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 Biopsy still pending. Microbiology reviewed and there is no fungus from the brushing. Consider Hgb to be around 9. Continue aggressive acid suppression. GI Prophylaxis: Proton Pump Inhibitor VTE Prophylaxis: Theraputic Anticoag with Warfarin Resuscitation Status: CPR: Attempt Resuscitation Dayn Mccallum MD Dec 27, 2016 10:38
--- NOTE | 2016-12-27 14:47 | DRSVH ---
PROCEDURE: X-RAY RIGHT FOOT COMPLETE, MINIMUM THREE VIEWS ([id number]) INDICATIONS: 86 year-old male with right foot pain. TECHNIQUE: 3 views of the foot were acquired. COMPARISON: None. FINDINGS: Bones: No fractures or dislocations. There is diffuse osteopenia. No suspicious bony lesions. Soft tissues: No tibiotalar joint effusion. Achilles tendon appears normal. There is widespread sm all vessel atherosclerosis, consistent with background diabetes mellitus and/or hyperparathyroidism. IMPRESSION: Diffuse osteopenia, without stress or insufficiency fractures identified. Dictated by: Ariel Wren M.D. on 12/27/2016 at 14:43 Approved by: Ariel Wren M.D. on 12/27/2016 at 14:45
[2016-12-28] VITALS (10 sets, daily range): BP systolic 119–134; BP diastolic 59–70; PULSE 76–95; RESP 20–24; O2SAT 91–96
--- NOTE | 2016-12-28 06:41 | NUR ---
Mentation/Heparin Drip Pt had a moment of confusion at approximately 0300 where the pt pulled the heparin drip IV out and took off his oxygen as well and then began to call out for help. Pt was covered in blood so manual compression with a cloth was applied to the site that was bleeding. Site did stop bleeding and a pressure dressing was applied to the site. The heparin drip was placed in the right AC PIV site and restarted with little delay. Pt was cleaned up and bedding was changed. Pt's current Heparin drip is going at a rate of 900Units/Hr. The next PTT Heparin draw will be at 0715.
[2016-12-28] MEDS: Heparin 25K Unit/500mL 0.45 NS 25,000 UNIT in IV Premix 1 EACH IV SCH (07:46)
[2016-12-28] MEDS: Lansoprazole 30 mg ODTablet PO SCH ×2 (07:46→20:00)
[2016-12-28] MEDS: 0.9% Sodium Chloride 250 ML IV SCH ×3 (09:25→14:15)
[2016-12-28 09:32] LABS: Mean Corpuscular Hemoglobin 25.7 pg (27.0-35.0)
[2016-12-28 09:38] LABS: INR 2.37 ratio
[2016-12-28] MEDS: cefTRIAXone Inj 1,000 MG in Dextrose 5% Minibag Plus 50 ML IV SCH (10:30)
--- NOTE | 2016-12-28 11:47 | PCM.PHAPRO ---
Progress Date of Service: Dec 28, 2016 Warfarin dosing INR = 2.37, HCT = 30.1, WNWE=140 pt continues on warfarin for mitral mechanical heart valve. INR today still subtherapeutic at 2.37 (goal 2.5-3.5). Will give a dose of warfarin 5mg PO today. INRs ordered. Pharmacy will follow. Date Dec 25Dec 26Dec 27-Dec 28 INR 1.76 1.26 1.49 2.32 2.37 INR change -0.5 0.23 0.83 0.05 Warf Dose 5 5MG X1 3MG/D HOLD 5MG Sisi Triana PharmD Dec 28, 2016 11:47
--- NOTE | 2016-12-28 12:07 | PCM.PNMED ---
Subjective Date of Service Dec 28, 2016 Subjective Patient doing well tolerating diet. Has no nausea vomiting abdominal pain. Patient had bowel movement it was still dark but he says it is more clearer than yesterday. Exam Vital Signs Vital Sign - Last Date Time Temp Pulse Resp B/P Pulse Ox O2 Delivery O2 Flow Rate FiO2 12/28/16 08:55 95 12/28/16 08:42 Supplement Oxygen 12/28/16 07:41 36.5 20 128/63 91 1.00 Intake and Output 12/27/16 12/27/16 12/28/16 Cumulative From/Thru 15:00 23:00 07:00 12/23/16 19:35 - 12/28/16 06:17 Intake Total 269 ml 1036 ml 250 ml 9472 ml Output Total 225 ml 1275 ml 9245 ml Balance 269 ml 811 ml -1025 ml 227 ml Intake Oral 636 ml 250 ml 2791 ml IV Total 269 ml 50 ml 4396 ml Packed Cells 350 ml 1265 ml FFP 1020 ml Output Urine Total 225 ml 1275 ml 9245 ml # Voids 12 12 # Bowel Movements 1 5 Exam Patient is alert oriented comfortable Head and neck no icterus Lungs clear however bases have again some crackles no different from yesterday. Cardiovascular regular rate and rhythm normal S1-S2 Abdomen soft nontender nondistended with normoactive bowel sounds Extremities no pitting edema ankles Skin shows no jaundice Lab and Diagnostics Result Diagram: 12/28/16 0910 12/27/16 0300 X-Rays, CTs and MRIs X-RAY CHEST ONE VIEW, PORTABLE ([id number]) IMPRESSION: 1. Focal opacity in the right lung base consistent with atelectasis versus pneumonia. 2. Cephalization of pulmonary vasculature suspicious for CHF Dictated by: Stephanie Hall MD, PhD on 12/23/2016 at 20:56 Approved by: Stephanie Hall MD, PhD on 12/23/2016 at 20:57 Cardiac Echo Impressions Previously performed Echocardiogram Report in April 2015 Interpretation Summary The left ventricle is normal in size. The ejection fraction is estimated to be 15-20%. Compared to the prior exam, left ventricular function is significantly decreased. The right ventricle is moderate to severely dilated. Right ventricular systolic function is moderate to severely reduced. Both atria are severely dilated. Both atria have remained unchanged in size since the prior echo exam. There are two AICD wires present in the right ventricle. In Apical view, a ill visualized, small mobile structure seen, appears to be attached to the AICD lead at the tricuspid valve level. Differential diagnosis includes: Thrombus versus small vegetation or residual chordae. Consider RAMONA. There is a mechanical mitral valve. The prosthetic mitral valve is well-seated. Cannot assess the presence or severity of regurgitation due to shielding from the prosthesis. The mitral E velocity is about 1.84 meter/sec. In 01/13/2013 it was 1.88 meter/sec. An annuloplasty ring is noted in the tricuspid position. There is mild to moderate tricuspid regurgitation.Compared to the prior echo exam, there has been an increase in TR severity. The right ventricular systolic pressure is estimated at 65 mmHg assuming a right atrial pressure of 15 mm Hg. Compared to the prior echo exam, there has been an increase in the severity of pulmonary hypertension. There are moderately large-sized bilateral pleural effusions noted. Reading Physician:PM Assessment & Plan Patient is an 86-year-old male with past medical history remarkable for coronary artery disease post CABG as well as mitral valve replacement? Aortic valve replacement? with mechanical valve chronically on Coumadin who presents with several weeks of worsening fatigue. He is anticoagulated and his hemoglobin is stable. Hgb 7.3 to 8.6 to 8.4 to 7.9 to 9.0. He received 1 unit of blood. He responded appropriately. Please have the follow-up patient follow -up to see me 2 weeks after discharge and we will sign off. I understand he is going to be discharge tomorrow. GI Prophylaxis: Proton Pump Inhibitor VTE Prophylaxis: Theraputic Anticoag with Warfarin Resuscitation Status: CPR: Attempt Resuscitation Dany Mccallum MD Dec 28, 2016 12:07
--- NOTE | 2016-12-28 12:49 | PCM.PNMED ---
Subjective Date of Service Dec 28, 2016 Subjective He is doing well. Still somewhat short of breath. He denies any blood per rectum. No abdominal pain. His Coumadin is therapeutic. No bleeding problems other than blood from her right IV site which has now been stopped. No chest pain or palpitations. He is globally weak. Exam Vital Signs Vital Sign - Last Date Time Temp Pulse Resp B/P Pulse Ox O2 Delivery O2 Flow Rate FiO2 12/28/16 12:13 36.6 77 21 123/59 92 Nasal Cannula 1.00 Intake and Output 12/27/16 12/27/16 12/28/16 Cumulative From/Thru 15:00 23:00 07:00 12/23/16 19:35 - 12/28/16 06:17 Intake Total 269 ml 1036 ml 250 ml 9472 ml Output Total 225 ml 1275 ml 9245 ml Balance 269 ml 811 ml -1025 ml 227 ml Intake Oral 636 ml 250 ml 2791 ml IV Total 269 ml 50 ml 4396 ml Packed Cells 350 ml 1265 ml FFP 1020 ml Output Urine Total 225 ml 1275 ml 9245 ml # Voids 12 12 # Bowel Movements 1 5 Exam Alert and oriented -3, no distress. Fluent speech Anicteric sclera. Lungs are clear with light tachypnea but normal effort. He has bibasilar rales. Heart is regular without murmur gallop or rub Abdomen soft nontender, flat Extremities are free of edema. Skin is free of rash or lesions., Multiple ecchymoses. IVs and Medications Medications Reviewed: Medications were reviewed in detail Lab and Diagnostics Result Diagram: 12/28/16 0910 12/27/16 0300 X-Rays, CTs and MRIs X-RAY CHEST ONE VIEW, PORTABLE ([id number]) IMPRESSION: 1. Focal opacity in the right lung base consistent with atelectasis versus pneumonia. 2. Cephalization of pulmonary vasculature suspicious for CHF Dictated by: Stephanie Hall MD, PhD on 12/23/2016 at 20:56 Approved by: Stephanie Hall MD, PhD on 12/23/2016 at 20:57 Cardiac Echo Impressions Previously performed Echocardiogram Report in April 2015 Interpretation Summary The left ventricle is normal in size. The ejection fraction is estimated to be 15-20%. Compared to the prior exam, left ventricular function is significantly decreased. The right ventricle is moderate to severely dilated. Right ventricular systolic function is moderate to severely reduced. Both atria are severely dilated. Both atria have remained unchanged in size since the prior echo exam. There are two AICD wires present in the right ventricle. In Apical view, a ill visualized, small mobile structure seen, appears to be attached to the AICD lead at the tricuspid valve level. Differential diagnosis includes: Thrombus versus small vegetation or residual chordae. Consider RAMONA. There is a mechanical mitral valve. The prosthetic mitral valve is well-seated. Cannot assess the presence or severity of regurgitation due to shielding from the prosthesis. The mitral E velocity is about 1.84 meter/sec. In 01/13/2013 it was 1.88 meter/sec. An annuloplasty ring is noted in the tricuspid position. There is mild to moderate tricuspid regurgitation.Compared to the prior echo exam, there has been an increase in TR severity. The right ventricular systolic pressure is estimated at 65 mmHg assuming a right atrial pressure of 15 mm Hg. Compared to the prior echo exam, there has been an increase in the severity of pulmonary hypertension. There are moderately large-sized bilateral pleural effusions noted. Reading Physician:PM Assessment & Plan # Acute blood loss anemia, POA and stable. Hematocrit is up to 30. Continue his PPI by mouth twice a day # Acute upper GI bleed, POA and resolved. Sources PUD with 3 gastric ulcers. No evidence of rebleeding, follow clinically. Changed medical plan # Elevated troponins, improved. No clinical symptoms of cardiac ischemia. No further workup. This likely relates to his moderately severe anemia and demand ischemia. No further workup this point. We will follow clinically. # Acute on Chronic systolic congestive heart failure, POA active and improving.. We will give him an additional 40 Lasix IV this morning . # Acute kidney injury, POA and improving. Follow laboratories. Avoid nephrotoxic medications. #. Right foot pain, new and improving.. X-ray of the foot is unremarkable. Continue symptomatic treatment. He is reassured. #. Chronic pain with continuous opiate dependence, POA. Will resume his patch every 72 hours. #. Urinary tract infection, new. No Nguyen involved. Escherichia coli, pansensitive. Ceftriaxone 1 g IV every 24 hours started today. 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 He remained subtherapeutic, continue bridge. # Chronic Coronary artery disease, POA and stable. We will try to maintain hematocrit of 26 or 7 and above. # Chronic Hypertension. POA and stable continue current medications # Benign prostatic hypertrophy, POA and stable. We will resume BPH medications. 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 Marie - Platelet count of 163 admission - Anemia is likely due to acute blood loss - Monitor # Gastroesophageal reflux disease. - Pantoprazole bolus and drip ordered for upper GI bleed DVT prophylaxis: Patient is chronically anticoagulated on warfarin and is currently contraindicated further anticoagulation given upper GI bleed GI prophylaxis: Pantoprazole drip See attached ACP note for today. Problem discharge on December 29 back to his assisted living, where the heart is. GI Prophylaxis: Proton Pump Inhibitor VTE Prophylaxis: Theraputic Anticoag with Warfarin Resuscitation Status: CPR: Attempt Resuscitation Jesus Gibbs MD Dec 28, 2016 12:49
--- NOTE | 2016-12-28 12:53 | PCM.ADCARE ---
Advance Care Planning Note Purpose of Encounter: To discuss local care as well as thoughts about reentering hospice Parties in Attendance: Patient, daughter, and son-in-law. Decisional Capacity: He is competent Subjective: He is doing well today. He is still a bit dyspneic but generally improving with diuresis. Objective: Alert and oriented 3 in no acute distress. Fluent speech. Lungs with slight tachypnea and decreased breath sounds in the bases. Goals of Care Determinations: 1. DO NOT RESUSCITATE 2. No heroic measures 3. DO NOT INTUBATE 4. No ICU level care 5. Agrees with antibiotics to use for reversible infections The patient remains somewhat unsure of where he stands and simple medical measures such as endoscopy or blood products if needed in the future. He is also unsure about tube feeds. Plan: Continue with the DNR/DNI status. The patient will discharge home tomorrow. They will consider re-assessment by hospice in the next 1-2 weeks if he feels improved to his baseline. At this point in time a six-month prognosis is difficult to determine given his current medical situation. CODE STATUS: DO NOT RESUSCITATE, DO NOT INTUBATE Time Spent Adv.Care Plannin minutes Adv. Care Plan Documenation: As above Jesus Gibbs MD Dec 28, 2016 12:53
--- NOTE | 2016-12-28 16:53 | NUR ---
Social Work Note: Continued Discharge Planning Data& Assessment: Per MD order, SW met with pt and pt family at bedside to discuss arranging a hospice information visit. Pt family explained that they have been through this process before and are interested in meeting with a hospice SW for an informational visit with [facility] again and see if he would meet criteria. Pt had previously graduated from Hospice one year ago. SW spoke with Valeria from Hospice who collected pt daughters information to contact her directly to arrange an informational visit. Per pt is likely to discharge back to [facility] in the next 1-2 days. SW spoke with Willy from [facility] who explained that pt does not require a bedside assessment prior to return but they would still like him to transfer independently into his wheelchair if possible. SW to follow up with pt RN regarding bed mobility. Pt and pt family denies any other needs at this time. SW to continue to follow. Plan: Anticipated discharge back to [facility] pending independent transfers with Hospice informational visit at a later date. Pt and pt family denies any other needs at this time. SW to continue to follow. STEPHANIE Willett
--- NOTE | 2016-12-28 18:48 | NUR ---
Activity/Pain/Heparin Patient a/o x 2-3, c/o right foot pain throughout the shift, pain meds given with moderate effect. Patient oob to chair with one person assist for all meals chang well. Taking diet well. VSS, tele V paced. BLE L>R. Voiding clear yellow uop. Heparin gtt stopped this afternoon per MD orders. Lungs with upper airway wheezes bilat, RR 16-20 min, RA sat 86-88% at rest, O2 @ 1 L sat 93-95%.
[2016-12-29] VITALS (9 sets, daily range): BP systolic 119–130; BP diastolic 64–75; PULSE 72–88; RESP 18–24; O2SAT 90–100
--- NOTE | 2016-12-29 06:46 | NUR ---
Respiratory/Rest/Mentation/Pain Pt was able to maintain SpO2 >92% on 1.5L NC while at rest but had to be increased to 2-3L NC when up to the BSC. Pt continues to sound wheezy and only c/o feeling SOB with activity. Pt was able to rest throughout the night and had no episodes of confusion. Pt did continue to have right foot pain. Pt was given 2mg morphine IVP twice during the shift and had hot packs applied to the site as well and these seemed to help the pt's foot pain.
[2016-12-29 07:42] LABS: INR 2.09 ratio
--- NOTE | 2016-12-29 09:04 | DRSVH ---
PROCEDURE: X-RAY CHEST, TWO VIEWS ([id number]) INDICATIONS: ?aspiration, increased O2 demands TECHNIQUE: 2 views of the chest were acquired. COMPARISON: None. FINDINGS: Surgical changes and devices: Sternotomy with mediastinal postoperative changes, mitral valve arthrop lasty, and left-sided cardiac pacer. Lungs and pleura: Small pleural effusions with bibasilar atelectasis right greater than left. Interst itial pulmonary opacities in the mid and lower lungs. Hyperinflation most consistent with COPD. Mediastinum: Mediastinal contours are normal. Heart size is normal. Prominent pulmonary venous vas cularity. Bones and chest wall: No suspicious bony abnormalities. Soft tissues appear unremarkable. IMPRESSION: Bilateral mid-lower lung opacities with small pleural effusions and extensive postoperative changes m ost consistent with fluid imbalance/early CHF exacerbation. Superimposed infection is less likely. Dictated by: Adolph Rutherford M.D. on 12/29/2016 at 9:01 Approved by: Adolph Rutherford M.D. on 12/29/2016 at 9:02
[2016-12-29] MEDS: 0.9% Sodium Chloride 250 ML IV SCH ×3 (09:25→14:15)
[2016-12-29] MEDS: Lansoprazole 30 mg ODTablet PO SCH (10:00)
[2016-12-29] MEDS ORDERED: Furosemide 10 mg/mL 4 mL Inj IVPUSH ONE (13:05)
[2016-12-29] MEDS: cefTRIAXone Inj 1,000 MG in Dextrose 5% Minibag Plus 50 ML IV SCH (13:49)
--- NOTE | 2016-12-29 16:02 | PCM.PNMED ---
Subjective Date of Service Dec 29, 2016 Subjective He is a little more dyspneic today, some cough this AM. No chest pain or nausea. Ongoing right foot pain. No redness or swelling. No overnight events. Exam Vital Signs Vital Sign - Last Date Time Temp Pulse Resp B/P Pulse Ox O2 Delivery O2 Flow Rate FiO2 12/29/16 15:11 Nasal Cannula 12/29/16 12:44 36.9 88 24 125/64 96 1.50 Intake and Output 12/28/16 12/28/16 12/29/16 Cumulative From/Thru 15:00 23:00 07:00 12/23/16 19:35 - 12/29/16 06:35 Intake Total 195 ml 826 ml 150 ml 58486 ml Output Total 800 ml 550 ml 13630 ml Balance 195 ml 26 ml -400 ml 48 ml Intake Oral 826 ml 150 ml 3767 ml IV Total 195 ml 4591 ml Packed Cells 1265 ml FFP 1020 ml Output Urine Total 800 ml 550 ml 94299 ml # Voids 12 # Bowel Movements 1 6 Exam Alert and oriented, no distress, fluent speech. Tachypnea Lungs with basilar rales, some expiratory wheezing Heart regular, no murmur Abdomen soft, non tender Extremities with 2+ edema, right track laminating machine tender to palpation. IVs and Medications Medications Reviewed: Medications were reviewed in detail Lab and Diagnostics Result Diagram: 12/28/16 0910 12/27/16 0300 X-Rays, CTs and MRIs X-RAY CHEST ONE VIEW, PORTABLE ([id number]) IMPRESSION: 1. Focal opacity in the right lung base consistent with atelectasis versus pneumonia. 2. Cephalization of pulmonary vasculature suspicious for CHF Dictated by: Stephanie Hall MD, PhD on 12/23/2016 at 20:56 Approved by: Stephanie Hall MD, PhD on 12/23/2016 at 20:57 Cardiac Echo Impressions Previously performed Echocardiogram Report in April 2015 Interpretation Summary The left ventricle is normal in size. The ejection fraction is estimated to be 15-20%. Compared to the prior exam, left ventricular function is significantly decreased. The right ventricle is moderate to severely dilated. Right ventricular systolic function is moderate to severely reduced. Both atria are severely dilated. Both atria have remained unchanged in size since the prior echo exam. There are two AICD wires present in the right ventricle. In Apical view, a ill visualized, small mobile structure seen, appears to be attached to the AICD lead at the tricuspid valve level. Differential diagnosis includes: Thrombus versus small vegetation or residual chordae. Consider RAMONA. There is a mechanical mitral valve. The prosthetic mitral valve is well-seated. Cannot assess the presence or severity of regurgitation due to shielding from the prosthesis. The mitral E velocity is about 1.84 meter/sec. In 01/13/2013 it was 1.88 meter/sec. An annuloplasty ring is noted in the tricuspid position. There is mild to moderate tricuspid regurgitation.Compared to the prior echo exam, there has been an increase in TR severity. The right ventricular systolic pressure is estimated at 65 mmHg assuming a right atrial pressure of 15 mm Hg. Compared to the prior echo exam, there has been an increase in the severity of pulmonary hypertension. There are moderately large-sized bilateral pleural effusions noted. Reading Physician:PM Assessment & Plan # Acute blood loss anemia, POA and stable. Hematocrit is up to 30. Continue his PPI by mouth twice a day. # Acute upper GI bleed, POA and resolved. Sources PUD with 3 gastric ulcers. No evidence of rebleeding, follow clinically. No further measures. # Elevated troponins, improved. No clinical symptoms of cardiac ischemia. No further workup. This likely relates to his moderately severe anemia and demand ischemia. No further workup this point. We will follow clinically. # Acute on Chronic systolic congestive heart failure, POA and worsening.. We will give him an additional 60 Lasix IV this evening and in AM. # Acute kidney injury, POA and improved. Follow laboratories. Avoid nephrotoxic medications. #. Right foot pain, new and istable.. X-ray of the foot is unremarkable. Continue symptomatic treatment. Will schedule oxucodone as well as prn. #. Chronic pain with continuous opiate dependence, POA. Will resume his patch every 72 hours. #. Urinary tract infection, new. No Nguyen involved. Escherichia coli, pansensitive. Ceftriaxone 1 g IV every 24 hours started today.Continue. 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 He remained subtherapeutic, continue bridge. # Chronic Coronary artery disease, POA and stable. We will try to maintain hematocrit of 26 or 7 and above. # Chronic Hypertension. POA and stable continue current medications # Benign prostatic hypertrophy, POA and stable. We will resume BPH medications. 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 Marie - Platelet count of 163 admission - Anemia is likely due to acute blood loss - Monitor # Gastroesophageal reflux disease. - Pantoprazole bolus and drip ordered for upper GI bleed DVT prophylaxis: Patient is chronically anticoagulated on warfarin and is currently contraindicated further anticoagulation given upper GI bleed GI prophylaxis: Pantoprazole drip Patient is interested in hospice and we will contact as well as reassess current discharge plan. He is weaker and more than a one person assist. GI Prophylaxis: Proton Pump Inhibitor VTE Prophylaxis: Theraputic Anticoag with Warfarin Resuscitation Status: CPR: Attempt Resuscitation Jesus Gibbs MD Dec 29, 2016 16:02
--- NOTE | 2016-12-29 16:32 | NUR ---
Social Work Note: Continued Discharge Planning Per MD request, SW arranged Hospice informational visit for pt and pt family during this hospitalization, tomorrow morning 12/30/2016 at 11:00am. notified. All updated and agreeable to plan. SW to continue to follow. STEPHANIE Willett
--- NOTE | 2016-12-29 17:40 | NUR ---
Resp/Pain Patient a/o x 2, c/o right foot pain, meds given prn and scheduled pain meds with moderate effect. Patient oob x 4 with one person assist, chang fair. Lungs course with wheezes bilat, dyspnea at rest and with exertion. O2 @ 3-4 L sat 93-95%, RR 24 min. Patient coughing up thin yellow sputum. Patient sleeping intermittently throughout the shift.
[2016-12-29] MEDS: Furosemide 10 mg/mL 4 mL Inj IVPUSH SCH (18:23)
[2016-12-29] MEDS: Pantoprazole 40 mg ER24 Tablet PO SCH (19:56)
[2016-12-30 03:04] VITALS: BP 125/63; PULSE 68; RESP 18; O2SAT 96
--- NOTE | 2016-12-30 05:27 | NUR ---
Respiratory / Pain Pt reports leg/feet pain at approx. 2-3/10 throughout shift, exacerbated with ambulation. Q4H oxycodone administered with relief, pt able to rest throughout shift. Initially on 4L NC at beginning of shift, pt weaned to 2.5L NC this AM with SpO2 of 96-97% throughout shift. VSS. Tele V-paced 70s with IVCD.
[2016-12-30] MEDS: Furosemide 10 mg/mL 4 mL Inj IVPUSH SCH (05:50)
[2016-12-30 05:59] LABS: Mean Corpuscular Hemoglobin 26.3 pg (27.0-35.0); Mean Corpuscular Volume 87.5 fL (81-100)
[2016-12-30 06:52] LABS: INR 2.35 ratio
[2016-12-30 07:51] VITALS: BP 114/48; PULSE 77; RESP 24; O2SAT 95
[2016-12-30 07:55] VITALS: PULSE 77
[2016-12-30] MEDS: Pantoprazole 40 mg ER24 Tablet PO SCH (07:56)
[2016-12-30] MEDS: 0.9% Sodium Chloride 250 ML IV SCH ×2 (09:25→10:15)
[2016-12-30 10:27] VITALS: PULSE 76
[2016-12-30] MEDS: cefTRIAXone Inj 1,000 MG in Dextrose 5% Minibag Plus 50 ML IV SCH (10:38)
[2016-12-30] MEDS ORDERED: Furosemide 10 mg/mL 4 mL Inj IVPUSH ONE (12:00)
[2016-12-30 12:38] VITALS: BP 122/67; PULSE 73; RESP 20; O2SAT 97
--- NOTE | 2016-12-30 13:37 | PCM.DIMED ---
Discharge Instructions Date of Service Dec 30, 2016 Dates of Hospitalization Dec 23, 2016 at 21:59 Discharge Diagnosis Discharge Diagnosis #. Discharge home with Hospice, comfort care. # Acute blood loss anemia,stable. # Acute upper GI bleed (3 gastric ulcers), resolved. # Acute on Chronic systolic congestive heart failure, improved. # Acute kidney injury, improved. #. Right foot pain, new and stable. #. Chronic pain with continuous opiate dependence, stable. #. Urinary tract infection, improved. 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 # Chronic Coronary artery disease, stable. # Chronic Hypertension. stable. # Benign prostatic hypertrophy, stable. 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 Diet Discharge Diet: Low fat, Low Sodium Activity Discharge Activity: Limited until seen by PCP Call your provider Call your provider for: Fever or Chills, Shortness of breath Patient Instructions Patient Instructions Hospice will follow at home. Jesus Gibbs MD Dec 30, 2016 13:37
[2016-12-30] MEDS ORDERED: OXYC5CAP4 PO (13:39)
[2016-12-30] MEDS ORDERED: FENTANYL TOPICAL (13:39)
[2016-12-30] MEDS ORDERED: CEPH500C PO (13:39)
[2016-12-30 13:41] LABS: INR 2.42 ratio
--- NOTE | 2016-12-30 15:02 | NUR ---
Oxygen evaluatation done. Room air oxygen sats at rest are 85% without activity. Sats on 3L nasal cannula at rest were 94%.
--- NOTE | 2016-12-30 15:57 | NUR ---
Faxed orders to [facility], patient is returning there today. [phone]
--- NOTE | 2016-12-30 16:24 | NUR ---
Social Work Note: Discharge Data& Assessment: EMR reviewed. Per pt is medically ready to discharge home via [facility] wheelchair shuttle and Home Health PT to follow. Jay Alejo is a 86 year old male admitted on 12/23/2016 for acute GI bleed and anemia. Per pt is medically stable and ready for discharge. Hospice informational visit completed with [facility] who pt has been open with in the past and prefers to go with again. Pt signed consents but Hospice is unsure of opening date at this time pending RN availability later this week. Hospice plans to follow up with pt family regarding final opening date and time. PT recommended Home Health PT, per order, SW provided pt family home health list for preferences as pt could benefit from Home Health PT to maintain functioning and quality of life until Hospice opens with him. Pt family preference for [facility] . Referral provided to Larissa from [facility], F2F obtained and Larissa notified of pt discharge. [facility] unsure if they will be able to open services with pt as he is a future hospice pt. [facility] will open with pt pending insurance authorization. Pt family aware and are agreeable to plan, they do agree it would be beneficial but understand if insurance will not authorize the home health services. [facility] confirmed pt return this afternoon and arranged for their shuttle to pick pt up at 4.p.m. today. Pt and pt family denies any other needs. No other discharge needs identified. All updated and agreeable to plan. Plan: Per pt is medically ready to discharge home via [facility] wheelchair shuttle and Home Health PT to follow. Hospice to open with pt at a later date. Pt and pt family denies any other needs. No other discharge needs identified. All updated and agreeable to plan. STEPHANIE Willett
--- NOTE | 2016-12-30 16:27 | NUR ---
Discharge note Patient a/o x3, forgetful at times. Patient c/o bilat LE and foot pain 4-6/10, scheduled pain meds given with moderate effect. Patient given scheduled and PRN pain meds for transport. IV SL and tele removed intact. Discharge instructions and prescriptions given to daughter. Patient transported via personal wheelchair with O2. Belongings sent with daughter. Report called to RN at [facility]. H&P faxed per facility request.
--- NOTE | 2016-12-31 08:25 | PCM.DC.MED ---
Discharge Summary Date of Service Dec 30, 2016 Dates of Hospitalization Date of Hospital Admission Dec 23, 2016 at 21:59 Date of Discharge: Dec 30, 2016 Providers: Admitting Physician: Jesus Cowan MD Primary Care Physician: Jamaica Flores MD Attending Physician: Jesus Cowan MD Diagnosis at Time of Discharge Diagnosis at Time of Discharge #. Discharge home with Hospice, comfort care. # Acute blood loss anemia,stable. # Acute upper GI bleed (3 gastric ulcers), resolved. # Acute on Chronic systolic congestive heart failure, improved. # Acute kidney injury, improved. #. Right foot pain, new and stable. #. Chronic pain with continuous opiate dependence, stable. #. Urinary tract infection, improved. 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 # Chronic Coronary artery disease, stable. # Chronic Hypertension. stable. # Benign prostatic hypertrophy, stable. 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 Consultations Dr Mccallum, gastroenterology Procedures XRay, CTs & MRIs X-RAY CHEST ONE VIEW, PORTABLE ([id number]) IMPRESSION: 1. Focal opacity in the right lung base consistent with atelectasis versus pneumonia. 2. Cephalization of pulmonary vasculature suspicious for CHF Dictated by: Stephanie Hall MD, PhD on 12/23/2016 at 20:56 Approved by: Stephanie Hall MD, PhD on 12/23/2016 at 20:57 Cardiac Echo Impression Previously performed Echocardiogram Report in April 2015 Interpretation Summary The left ventricle is normal in size. The ejection fraction is estimated to be 15-20%. Compared to the prior exam, left ventricular function is significantly decreased. The right ventricle is moderate to severely dilated. Right ventricular systolic function is moderate to severely reduced. Both atria are severely dilated. Both atria have remained unchanged in size since the prior echo exam. There are two AICD wires present in the right ventricle. In Apical view, a ill visualized, small mobile structure seen, appears to be attached to the AICD lead at the tricuspid valve level. Differential diagnosis includes: Thrombus versus small vegetation or residual chordae. Consider RAMONA. There is a mechanical mitral valve. The prosthetic mitral valve is well-seated. Cannot assess the presence or severity of regurgitation due to shielding from the prosthesis. The mitral E velocity is about 1.84 meter/sec. In 01/13/2013 it was 1.88 meter/sec. An annuloplasty ring is noted in the tricuspid position. There is mild to moderate tricuspid regurgitation.Compared to the prior echo exam, there has been an increase in TR severity. The right ventricular systolic pressure is estimated at 65 mmHg assuming a right atrial pressure of 15 mm Hg. Compared to the prior echo exam, there has been an increase in the severity of pulmonary hypertension. There are moderately large-sized bilateral pleural effusions noted. Reading Physician:PM Invasive Procedures EGD: Revealing 3 gastric ulcers with clean bases, no visible vessels or bleeding. Brief History Patient is an 86-year-old male with past medical history remarkable for coronary artery disease post CABG as well as mitral valve replacement with mechanical valve chronically on Coumadin who presents with several weeks of worsening fatigue. The patient states that he has never had any pain anywhere during the course of this weeks long process. The patient states that it has been gradual over the last several weeks with accompanying mild shortness of breath which is noted with exertion and not when lying flat. The patient is wheelchair bound at baseline. The patient is also noted approximately 1 month of dark colored stools but denies any abdominal pain or gross distention of his abdomen.. The patient denies fever or chills sore throat and runny nose or cough chest pain, nausea vomiting diarrhea, unusual bruising or bleeding, or trouble with urination. Hospital Course # Acute blood loss anemia, POA and stable. Hematocrit is up to 30. Continue his PPI by mouth twice a day. The patient was transfused for 2 bolus in the meantime tests of upper GI bleed. He maintained stable hematocrit after transfusion. # Acute upper GI bleed, POA and resolved. Sources PUD with 3 gastric ulcers. No evidence of rebleeding, follow clinically. No further measures. EGD revealed 3 ulcers nonbleeding. He was treated with PPI converted from drip to by mouth twice a day dose and had no further complications. # Elevated troponins, improved. No clinical symptoms of cardiac ischemia. No further workup. This likely relates to his moderately severe anemia and demand ischemia. No further workup this point. We will follow clinically. # Acute on Chronic systolic congestive heart failure, POA and worsening.. We will give him an additional 60 Lasix IV this evening and in AM. The patient required ongoing diuresis with IV Lasix while in the hospital. His acute on chronic systolic heart failure is limiting medical condition. This will continue to cause him the most problem and discomfort. We will continue by mouth diuretics at home and he is reinitiated and with hospice. He was opened with hospice for a year for end-stage systolic heart failure and non-was closed because of improvement. # Acute kidney injury, POA and improved. Follow laboratories. Avoid nephrotoxic medications. #. Right foot pain, new and istable.. X-ray of the foot is unremarkable. Continue symptomatic treatment. Will schedule oxycodone as well as prn. Etiology of his right foot pain was unclear. X-rays were negative there is no clinical evidence of cellulitis or ischemia. We will treat this symptomatically. #. Chronic pain with continuous opiate dependence, POA. Will resume his patch every 72 hours. Final transfer was reinstituted in the hospital will continue at home. #. Urinary tract infection, new. No Nguyen involved. Escherichia coli, pansensitive. Ceftriaxone 1 g IV every 24 hours started today.Continue. We will continue treatment with oral antibiotics for an additional 5 days. 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 He remained subtherapeutic, continue bridge. The patient is therapeutic for 2 days prior to discharge we will continue Coumadin. # Chronic Coronary artery disease, POA and stable. We will try to maintain hematocrit of 26 or 7 and above. This remained stable on the hospital.. # Chronic Hypertension. POA and stable continue current medications. This remained stable in the hospital. # Benign prostatic hypertrophy, POA and stable. We will resume BPH medications. 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 Marie - Platelet count of 163 admission - Anemia is likely due to acute blood loss - Monitor # Gastroesophageal reflux disease. - Pantoprazole bolus and drip ordered for upper GI bleed Discharge is home with home health as well as hospice initiation. Exam Vital Signs (Last) Date Time Temp Pulse Resp B/P Pulse Ox O2 Delivery O2 Flow Rate FiO2 12/30/16 12:38 37.3 73 20 122/67 97 Nasal Cannula 12/30/16 07:51 3.00 Exam Patient was seen and examined the day of discharge Test 12/23/16 19:50 12/24/16 18:20 12/25/16 03:50 12/25/16 17:40 Neutrophils (%) (Auto) 67.3% (40-74) Lymphocytes (%) (Auto) 18.9% (14-46) Monocytes (%) (Auto) 9.6% (4-12) Eosinophils (%) (Auto) 3.4% (0-5) Basophils (%) (Auto) 0.8% (0-3) Troponin T 0.060ug/L (0.0-0.011) Urine Color Yellow (YELLOW) Urine Appearance Cloudy (CLEAR,HAZY) Urine pH 6.0 (5.0-8.0) Urine Specific [place] 1.010 (1.003-1.035) Urine Protein Tracemg/dL (NEG,TRACE) Urine Glucose (UA) Negativemg/dL (NEGATIVE) Urine Ketones Negativemg/dL (NEGATIVE) Urine Occult Blood Moderate (NEGATIVE) Urine Nitrite Negative (NEGATIVE) Urine Bilirubin Negative (NEGATIVE) Urine Urobilinogen Normalmg/dL (NORMAL) Urine Leukocyte Esterase Large (NEGATIVE) Urine RBC 11-50/hpf (0-2) Urine WBC >50/hpf (0-5) Urine Epithelial Cells Few/hpf (NONE-MOD) Urine Crystals None seen (NONE SEEN) Urine Bacteria Moderate/hpf (NONE-FEW) Urine Hyaline Casts None/lpf (NONE) Urine Granular Casts None seen (NONE SEEN) Urine Waxy Casts None seen (NONE SEEN) Urine Red Blood Cell Casts None seen (NONE SEEN) Urine White Blood Cell Casts None seen (NONE SEEN) Urine Mucus None seen (None Seen) Urine Trichomonas None seen (NONE SEEN) Urine Yeast None (NONE SEEN) Urinalysis Comment None Urine Culture Reflexed Indicated Magnesium Level 2.3mg/dL (1.6-2.6) Total Bilirubin 1.0mg/dL (0.0-1.2) Aspartate Amino Transf (AST/SGOT) 15U/L (0-50) Alanine Aminotransferase (ALT/SGPT) 10U/L (0-44) Alkaline Phosphatase 68U/L (25-160) Total Protein 6.4g/dL (6.4-8.4) Albumin 3.8g/dL (3.4-5.0) Test 12/28/16 09:10 12/30/16 05:25 12/30/16 13:18 Activated Partial Thromboplast Time 81.2sec (22.8-33.0) White Blood Count 6.6th/mm3 (3.8-10.1) Red Blood Count 3.04mil/mm3 (4.40-5.80) Hemoglobin 8.0g/dL (13.8-17.2) Hematocrit 26.6% (41.0-50.0) Mean Corpuscular Volume 87.5fL (81-100) Mean Corpuscular Hemoglobin 26.3pg (27.0-35.0) Mean Corpuscular Hemoglobin Concent 30.1% (32.0-37.0) Red Cell Distribution Width 17.1% (12.3-15.4) Platelet Count 99bil/L (150-400) Sodium Level 142mEq/L (134-144) Potassium Level 4.0mEq/L (3.5-5.2) Chloride Level 101mEq/L (97-108) Carbon Dioxide Level 28mmol/L (18-29) Blood Urea Nitrogen 46mg/dL (8-27) Creatinine 1.58mg/dL (0.76-1.27) Estimat Glomerular Filtration Rate 44mL/min (>59) Glucose Level 120mg/dL (60-99) Calcium Level 8.9mg/dL (8.5-10.1) Prothrombin Time 26.4sec (8.1-12.5) Prothromb Time International Ratio 2.42ratio Discharge Medications Discharge Medications ([Fentanyl patch]) 25 MCG TOPICAL Every 72 hours Prescribed by: JESUS COWAN MD Carvedilol (Carvedilol) 25 Mg Tablet 25 MG PO BID (Reported) Cephalexin (Cephalexin) 500 Mg Capsule 500 MG PO QID Prescribed by: JESUS COWAN MD Fluocinolone 0.01% Cream (Fluocinolone 0.01% Cream) 60 Applic/15 Gm Cream 1 APPLIC TOPICAL DAILY (Reported) Lisinopril (Lisinopril) 5 Mg Tablet 5 MG PO DAILY (Reported) Omeprazole (Omeprazole) 20 Mg Capsule.dr 20 MG PO DAILY (Reported) Potassium Chloride ER (Potassium Chloride ER) 20 Meq Tablet.er 20 MEQ PO DAILYWM (Reported) TAKE WITH FOOD Sennosides (Senna) 8.6 Mg Tablet 17.2 MG PO DAILYWD (Reported) Terazosin (Terazosin) 2 Mg Capsule 4 MG PO HS (Reported) Torsemide (Torsemide) 20 Mg Tablet 60 MG PO DAILY (Reported) Warfarin Sodium (Warfarin Sodium) 2 Mg Tablet 2 MG PO Q2DAY (Reported) Warfarin Sodium (Warfarin Sodium) 3 Mg Tablet 3 MG PO Q2DAY (Reported) As needed Acetaminophen (Acetaminophen) 500 Mg Tablet 1,000 MG PO Q6H PRN PRN For Pain ( Reported) Bisacodyl (Bisacodyl Rectal) 10 Mg/30 Ml Enema 10 MG RC PRN PRN PRN For Constipation (Reported) Guaifenesin (Tussin Chest Congestion) 100 Mg/5 Ml Liquid 100 MG PO Q4H PRN PRN For Cough (Reported) Hypromellose (Nature's Tears) 15 Ml Drops 15 ML BOTH_EYES Q 4 hrs PRN PRN dry eye (Reported) Melatonin (Melatonin) 1 Mg Tablet 2 MG PO HS PRN PRN Insomnia (Reported) Nitroglycerin SL (Nitrostat) 0.4 Mg Tab.subl 0.4 MG SL Q5MIN PRN PRN chest pain (Reported) oxyCODONE (oxyCODONE) 5 Mg Capsule 5 MG PO Q4H PRN PRN For Pain Prescribed by: JESUS COWAN MD Followup Plan Disposition: Home, assisted facility with hospice to be initiated in the very near future Discharge Diet: Low fat, Low Sodium Discharge Activity: Limited until seen by PCP Patient Instructions Hospice will follow at home. Time spent 60 minutes Jesus Cowan MD Dec 31, 2016 08:25
== END 2016-12-30 16:15 | disposition home health service (06) | DRG 380 ==
LOC: SED 19:27 → PCC 21:59
PROVIDERS: ADMIT Hospitalist; ATTEND Hospitalist
PROC: 30233K1 Transfusion of Nonautologous Frozen Plasma into Peripheral Vein, Percutaneous Approach (ICD-10-PCS; 2016-12-23)
PROC: 30233N1 Transfusion of Nonautologous Red Blood Cells into Peripheral Vein, Percutaneous Approach (ICD-10-PCS; 2016-12-24)
PROC: 30233K1 Transfusion of Nonautologous Frozen Plasma into Peripheral Vein, Percutaneous Approach (ICD-10-PCS; 2016-12-24)
PROC: 0DJ08ZZ Inspection of Upper Intestinal Tract, Via Natural or Artificial Opening Endoscopic (ICD-10-PCS; principal; 2016-12-24 15:45)
PROC: 30233N1 Transfusion of Nonautologous Red Blood Cells into Peripheral Vein, Percutaneous Approach (ICD-10-PCS; 2016-12-25)
PROC: 30233N1 Transfusion of Nonautologous Red Blood Cells into Peripheral Vein, Percutaneous Approach (ICD-10-PCS; 2016-12-27)
DX: K22.11 Ulcer of esophagus with bleeding (principal); I50.23 Acute on chronic systolic (congestive) heart failure; D62 Acute posthemorrhagic anemia; I24.8 Other forms of acute ischemic heart disease; N17.9 Acute kidney failure, unspecified; B37.81 Candidal esophagitis; N39.0 Urinary tract infection, site not specified; F11.20 Opioid dependence, uncomplicated; I25.10 Atherosclerotic heart disease of native coronary artery without angina pectoris; D69.6 Thrombocytopenia, unspecified; N40.0 Benign prostatic hyperplasia without lower urinary tract symptoms; I10 Essential (primary) hypertension; Z99.3 Dependence on wheelchair; Z79.01 Long term (current) use of anticoagulants; E78.5 Hyperlipidemia, unspecified; Z95.2 Presence of prosthetic heart valve